=== PATIENT | male | born 1955 | race Caucasian/White ===

== ENCOUNTER 2019-04-16 10:54 | Observation (INO) | payer MEDICARE, OTHER ==
[~2019-04-16] VITALS: Ht 167.6 cm; Wt 69.9 kg
[2019-04-16] MEDS ORDERED: OMEPRAZOLE20 MG PO (11:36)
[2019-04-16] MEDS ORDERED: LISI20 PO (11:36)
[2019-04-16] MEDS ORDERED: AMLO5 PO (11:36)
[2019-04-16] MEDS ORDERED: MELO7.5 PO (11:37)
[2019-04-16] MEDS ORDERED: HYDR1TAB94 PO (11:37)
[2019-04-16 11:47] LABS: BASOPHILS ABSOLUTE AUTO 0.07 K/mm3 (0.00-0.23); BASOPHILS PERCENT AUTO 1 % (0-2); EOSINOPHILS ABSOLUTE AUTO 0.04 K/mm3 (0.00-0.68); EOSINOPHILS PERCENT AUTO 0 % (0-6); Hematocrit 45.5 % (37.0-53.0); Hemoglobin 15.1 g/dL (13.5-17.5); IMMATURE GRAN ABSOLUTE AUTO 0.02 K/mm3 (0.00-0.10); IMMATURE GRAN PERCENT AUTO 0 % (0-1); LYMPHOCYTES PERCENT AUTO 18 % (21-46); MONOCYTES ABSOLUTE AUTO 1.41 K/mm3 (0.16-1.47); MONOCYTES PERCENT AUTO 13 % (4-13); Mean Corpuscular HGB 30.1 pg (26.0-34.0); Mean Corpuscular HGB Conc 33.2 g/dL (31.5-36.5); Mean Corpuscular Volume 91 fL (80-100); Mean Platelet Volume 8.8 fL (9.1-12.4); NEUTROPHILS ABSOLUTE AUTO 7.05 K/mm3 (1.96-9.15); NEUTROPHILS PERCENT AUTO 67 % (41-73); Platelet Count 510 K/mm3 (150-400); RDW Coefficient Variation 13.5 % (11.7-14.2); RDW Standard Deviation 45.4 fL (35.1-46.3); Red Blood Cell Count 5.02 M/mm3 (4.30-5.90); White Blood Cell Count 10.49 K/mm3 (4.00-11.30)
[2019-04-16 12:05] LABS: Alanine Aminotransfer (ALT/SGP 25 U/L (12-78); Albumin, Blood 3.3 g/dL (3.4-5.0); Albumin/Globulin Ratio 0.7 (0.8-1.8); Alk Phos 125 U/L (50-136); Anion Gap 9 mmol/L (6-16); Aspartate Aminotrans (AST/SGOT 32 U/L (12-37); Bilirubin, Total 0.7 mg/dL (0.1-1.0); Blood Urea Nitrogen 9 mg/dL (8-24); Bun/Creatinine Ratio 9.6 (12.0-20.0); CO2, Blood 28 mmol/L (21-32); Calcium, Blood 8.7 mg/dL (8.5-10.1); Chloride, Blood 105 mmol/L (98-108); Creatinine, Blood 0.94 mg/dL (0.60-1.20); Globulin, Blood 4.9 g/dL (2.2-4.0); Glomerular Filtration Rate >60 (60-); Glucose, Blood 108 mg/dL (70-99); Potassium, Blood 3.5 mmol/L (3.5-5.5); Sodium, Blood 142 mmol/L (136-145); Total Protein, Blood 8.2 g/dL (6.4-8.2); Troponin I <0.015 ng/mL (0.000-0.040)
[2019-04-16] MEDS ORDERED: ALBU2.5V5 (15:36)
[2019-04-16 18:11] LABS: CHOL/HDL RATIO 2.5; Cholesterol 192 mg/dL (50-200); HDL Cholesterol 76 mg/dL (>39); LDL/HDL RATIO 1.3; Low Density Lipoprotein Chol 99 mg/dL (0-110); Triglycerides 87 mg/dL (30-160); Very Low Density Lipoprot Chol 17 mg/dL (6-32)
[2019-04-16 18:13] LABS: Troponin I <0.015 ng/mL (0.000-0.040)
--- NOTE | 2019-04-16 18:54 | NUR ---
SHIFT NOTE PT ADMITTED FROM ER FOR AFIB RVR THAT WAS REPORTED TO BE BETWEEN 160s-180s, PT HAD 10MG BOLUS OF CARDIZEM AND INFUSION OF 5MG/HR UPON ARRIVAL FROM. PT WAS TITRATED 10MG CARDIZEM HR JUMPED TO 180s WHEN PT WAS UP TO BSC. PT ON ROOM AIR. ASYMPTOMATIC, DENIES FLUTTERING IN CHEST, NO CP NO SOB. PT A/O X4, ANSWERING QUESTIONS APPROPRIATELY. SKIN PWD AND INTACT. ROOM AIR
[2019-04-17 01:21] LABS: BASOPHILS ABSOLUTE AUTO 0.08 K/mm3 (0.00-0.23); BASOPHILS PERCENT AUTO 1 % (0-2); EOSINOPHILS ABSOLUTE AUTO 0.13 K/mm3 (0.00-0.68); EOSINOPHILS PERCENT AUTO 2 % (0-6); Hematocrit 40.9 % (37.0-53.0); Hemoglobin 13.6 g/dL (13.5-17.5); IMMATURE GRAN ABSOLUTE AUTO 0.02 K/mm3 (0.00-0.10); IMMATURE GRAN PERCENT AUTO 0 % (0-1); LYMPHOCYTES PERCENT AUTO 26 % (21-46); MONOCYTES ABSOLUTE AUTO 1.32 K/mm3 (0.16-1.47); MONOCYTES PERCENT AUTO 16 % (4-13); Mean Corpuscular HGB Conc 33.3 g/dL (31.5-36.5); Mean Corpuscular Volume 90 fL (80-100); Mean Platelet Volume 8.8 fL (9.1-12.4); NEUTROPHILS ABSOLUTE AUTO 4.76 K/mm3 (1.96-9.15); NEUTROPHILS PERCENT AUTO 56 % (41-73); Platelet Count 433 K/mm3 (150-400); RDW Coefficient Variation 13.3 % (11.7-14.2); RDW Standard Deviation 44.2 fL (35.1-46.3); Red Blood Cell Count 4.54 M/mm3 (4.30-5.90); White Blood Cell Count 8.51 K/mm3 (4.00-11.30)
[2019-04-17 01:35] LABS: Anion Gap 7 mmol/L (6-16); Blood Urea Nitrogen 11 mg/dL (8-24); CO2, Blood 28 mmol/L (21-32); Calcium, Blood 8.3 mg/dL (8.5-10.1); Chloride, Blood 106 mmol/L (98-108); Creatinine, Blood 0.79 mg/dL (0.60-1.20); Glomerular Filtration Rate >60 (60-); Glucose, Blood 96 mg/dL (70-99); Potassium, Blood 3.3 mmol/L (3.5-5.5); Sodium, Blood 141 mmol/L (136-145)
--- NOTE | 2019-04-17 02:14 | NUR ---
ASSUMED CARE AT 1900. SLEEPING SOUNDLY AND AROUSED FOR ASSESSMENT. CARDIZEM AT 10MG /HR. AND AF HR 90-100 WHILE ASLEEP. AND NOT OOB OF THIS X .REDUCED CARDIZEM TO 5 MG / HR AT 2330 HR NOTED 60'S-70'S. NOW 80-100. OCCASIONAL COUGH MOIST AND REPORTS SCANT CLEAR SECRETIONS. REPORTS BED UNCOMFORTABLE WITH SPINAL CONDITION, BUT PAIN MED FOR THIS CHRONIC PAIN, REFUSED,
--- NOTE | 2019-04-17 06:27 | NUR ---
SUMMARY. NO CHANGE FROM ABOVE. WHEN BED REST ALL NOC HR 80-90 ON 5 MG /HR CARDIZEM. NEVER REPORTS SOB/ CP / PALPITATIONS. REPORTS LESS COUGHING AND IMPROVEMENT. PAIN MED REQUIRED DUE TO LYING IN BED ALL NOC,.
--- NOTE | 2019-04-17 17:24 | NUR ---
SHIFT SUMMARY PT A&Ox4. CALM AND COOPERATIVE WITH CARE. PT RESTING IN BED, APPEARS TO BE INTERMITTENTLY SLEEPING. PT REPORT NECK AND LOWER BACK PAIN, MEDICATED x1 WITH POSITIVE RESULTS. UP IN ROOM WITH SBA. PT DENIES SOB. SPO2 >94%/ PT REPROTS DRY COUGH. PT DENIES CP, LIGHTHEADED/DIZZINESS AND NASUEA. TELE THIS AM AFIB HR 80-100, PT RECEIVING IV CARDIZEM AND STARTED PO CARDIZEM AT 1120. 1228 STOPPED CARDIZEM GTT. TELE AFIB 60-80'S THIS AFTERNOON. THIS AM HR 110-140 WITH ACTIVITY, PT UP TO BS AND HAS BED BATH. PT RECEIVED IV MAGNESIUM AND PO POTASSIUM SUPPLEMENTS. VSS. NO OTHER ACUTE CHANGES NOTED DURING SHIFT. WILL CONTINUE TO MONITOR UNTIL REPORT GIVEN TO ONCOMING RN.
--- NOTE | 2019-04-17 21:34 | NUR ---
ASSUMED CARE OF PATIENT AT APPROXIMATELY 1910 FROM YULIANA Delgado RN. PATIENT ALERT AND ORIENTED X4; ONE ASSIST OUT OF BED. PATIENT REPORTS CHRONIC BACK PAIN; REFUSES ANY INTERVENTION EXCEPT PAIN MEDICATIONS; MEDICATED PER EMAR. PATIENT DENIES NUMBNESS, TINGLING, DIZZINESS AND NAUSEA. PATIENT STARTED ELIQUIS TODAY; NO QUESTIONS FROM PATIENT. PATIENT HAS COUGH; TAKEN OFF OF LISINIPRIL BEFORE ADMISSION TO HOSPITAL. AFIB WITH A RATE IN THE 90'S; HEART RATE INCREASES TO 120'S WITH AMBULATION; OXYGEN SATURATION ABOVE 90% ON ROOM AIR. 2X PIV S/L. PATIENT CURRENTLY RESTING IN BED; CALL LIGHT IN REACH; BED IN LOWEST POSISTION; WILL CONTINUE TO MONITOR AND ASSESS UNTIL END OF SHIFT.
--- NOTE | 2019-04-18 06:06 | NUR ---
PATIENT SLEPT ABOUT NINE HOURS LAST NIGHT. VSS. NO ACUTE CHANGE TO REPORT. WILL CONTINUE TO MONITOR AND ASSESS UNTIL END OF SHIFT.
[2019-04-18] MEDS ORDERED: ASPI81CH PO (11:21)
[2019-04-18] MEDS ORDERED: ELIQUIS5 MG PO (11:22)
[2019-04-18] MEDS ORDERED: DILTIAZEM 24HR240 MG PO (11:23)
--- NOTE | 2019-04-18 15:16 | NUR ---
DISCHARGE SUMMARY PT A&Ox4. CALM AND COOPERATIVE WITH CARE. PT SBA IN ROOM, UP TO BATHROOM. PT REPORTS NECK/BACK PAIN, MEDICATED x1 WITH NORCO WITH POSITIVE RESULTS. PT AWAKE RESTING IN BED T/O SHIFT. TELE AFIB 80-100 FOR MAJORITY OF SHIFT, UP TO 150 WITH ACTIVITY, DR OGDEN NOTIFIED, NO NEW ORDERS. PT DENIES SOB AND NAUSEA. PT RECEIVED DOSE OF PPO CARDIZEM. VSS. NO OTHER ACUTE CHANGES NOTED DURING SHIFT. PT EDUCATED ON DISCHARGE INSTRUCTIONS, MEDICATIONS AND FOLLOW UP APPOINTMENTS. SHCEDULES CARDOLOGY APPOINTMENT, PT DOES NOTE HAVE PCP, PLANS TO APPLY WITH [facility], AND WILL FOLLOW UP WITH THEIR URGENT CARE UNTIL ESTABLISHED WITH PCP. PRESCIPTIONS FAXED TO [facility] ON [address], PER PT REQUEST. PT LEFT ROOM VIA WHEELCHAIR AT 1341. PT STABLE UPON DISCHARGE.
== END 2019-04-18 13:41 | disposition home or self-care (01) ==
LOC: ER 10:54 → PCU 10:55 → ER 14:53 → PCU 15:33
PROVIDERS: Physician Assistant; ADMIT Internal Medicine
DX: I48.91 Unspecified atrial fibrillation (principal); R05 Cough; I10 Essential (primary) hypertension; E11.9 Type 2 diabetes mellitus without complications; J44.9 Chronic obstructive pulmonary disease, unspecified; M45.9 Ankylosing spondylitis of unspecified sites in spine; L40.9 Psoriasis, unspecified; D47.3 Essential (hemorrhagic) thrombocythemia; E83.42 Hypomagnesemia; F17.210 Nicotine dependence, cigarettes, uncomplicated; E87.6 Hypokalemia; Z79.01 Long term (current) use of anticoagulants; Z79.82 Long term (current) use of aspirin; Z79.899 Other long term (current) drug therapy
CPT/HCPCS: 36415; 71046; 80048; 80053; 80061; 83735; 83880; 84443; 84484; 85025; 90686; 93005; 93010; 93306; 96365; 96372-59; 96376; 99284-25; A9270-GY; J1650; J3475

== ENCOUNTER 2020-10-31 09:34 | Emergency (ER) | payer MEDICARE, OTHER ==
[~2020-10-31] VITALS: Ht 167.6 cm; Wt 73.5 kg
[~2020-10-31 09:34] MED LIST: ALBU2.5V5; AMLO5 PO; ASPI81CH PO; DILTIAZEM 24HR240 MG PO; ELIQUIS5 MG PO; HYDR1TAB94 PO; LISI20 PO; MELO7.5 PO; OMEPRAZOLE20 MG PO
[2020-10-31] MEDS ORDERED: HYDR1TAB94 PO (11:24)
== END 2020-10-31 11:36 | disposition home or self-care (01) ==
LOC: ER 09:34
DX: M79.671 Pain in right foot (principal); I10 Essential (primary) hypertension; E11.9 Type 2 diabetes mellitus without complications; F17.210 Nicotine dependence, cigarettes, uncomplicated; Z79.01 Long term (current) use of anticoagulants; Z79.899 Other long term (current) drug therapy
CPT/HCPCS: 93971; 99284-25

== ENCOUNTER 2021-09-15 11:44 | Inpatient (IN) | payer MEDICARE ==
[~2021-09-15] VITALS: Ht 167.6 cm; Wt 70.1 kg
[2021-09-15 12:22] LABS: Hematocrit 22.7 % (37.0-53.0); Hemoglobin 7.6 g/dL (13.5-17.5); Mean Corpuscular HGB 31.8 pg (26.0-34.0); Mean Corpuscular HGB Conc 33.5 g/dL (31.5-36.5); Mean Corpuscular Volume 95 fL (80-100); Mean Platelet Volume 8.7 fL (9.1-12.4); NRBC ABSOLUTE 0.03 K/mm3 (0.00-0.02); NRBC Auto 0.3 /100 WBC (0.0-0.2); Platelet Count 477 K/mm3 (150-400); RDW Coefficient Variation 17.7 % (11.7-14.2); RDW Standard Deviation 60.3 fL (35.1-46.3); Red Blood Cell Count 2.39 M/mm3 (4.30-5.90); White Blood Cell Count 11.36 K/mm3 (4.00-11.30)
[2021-09-15 12:51] LABS: Albumin, Blood 1.9 g/dL (3.4-5.0); Albumin/Globulin Ratio 0.4 (0.8-1.8); Bun/Creatinine Ratio 7.5 (12.0-20.0); Calcium, Blood 5.4 mg/dL (8.5-10.1); Creatinine, Blood 1.87 mg/dL (0.60-1.20); Globulin, Blood 4.9 g/dL (2.2-4.0); Potassium, Blood 2.7 mmol/L (3.5-5.5); Total Protein, Blood 6.8 g/dL (6.4-8.2)
[2021-09-15 13:43] LABS: BASOPHILS ABSOLUTE MAN 0.11 K/mm3 (0.00-0.23); BASOPHILS PERCENT MAN 1 % (0-2); EOSINOPHILS ABSOLUTE MAN 0.11 K/mm3 (0.00-0.68); EOSINOPHILS PERCENT MAN 1 % (0-6); LYMPHOCYTES ABSOLUTE MAN 2.04 K/mm3 (0.84-5.20); LYMPHOCYTES PERCENT MAN 18 % (21-46); MONOCYTES PERCENT MAN 0 % (4-13); NEUTROPHILS ABSOLUTE MAN 9.08 K/mm3 (1.96-9.15); SEG NEUTROPHILS PERCENT MAN 80 % (41-73); TOTAL CELLS COUNTED 100
[2021-09-15 17:52] LABS: Hematocrit 19.2 % (37.0-53.0); Hemoglobin 6.5 g/dL (13.5-17.5); Mean Corpuscular HGB 31.7 pg (26.0-34.0); Mean Corpuscular HGB Conc 33.9 g/dL (31.5-36.5); Mean Corpuscular Volume 94 fL (80-100); Mean Platelet Volume 8.6 fL (9.1-12.4); Platelet Count 368 K/mm3 (150-400); RDW Coefficient Variation 17.4 % (11.7-14.2); Red Blood Cell Count 2.05 M/mm3 (4.30-5.90)
[2021-09-15 19:25] LABS: BASOPHILS ABSOLUTE AUTO 0.04 K/mm3 (0.00-0.23); BASOPHILS PERCENT AUTO 1 % (0-2); EOSINOPHILS ABSOLUTE AUTO 0.01 K/mm3 (0.00-0.68); EOSINOPHILS PERCENT AUTO 0 % (0-6); Mean Corpuscular HGB 31.3 pg (26.0-34.0); Mean Corpuscular HGB Conc 32.4 g/dL (31.5-36.5); Mean Corpuscular Volume 97 fL (80-100); Mean Platelet Volume 8.8 fL (9.1-12.4); Platelet Count 314 K/mm3 (150-400); RDW Coefficient Variation 17.5 % (11.7-14.2); RDW Standard Deviation 60.6 fL (35.1-46.3); Red Blood Cell Count 1.82 M/mm3 (4.30-5.90); White Blood Cell Count 6.93 K/mm3 (4.00-11.30)
[2021-09-15] MEDS ORDERED: METOPROLOL SUCC25 MG PO (19:26)
[2021-09-15] MEDS ORDERED: LOSA25 (19:26)
[2021-09-15] MEDS ORDERED: METTREX2.5 PO (19:26)
[2021-09-15 19:30] LABS: IMMATURE GRAN ABSOLUTE AUTO 0.07 K/mm3 (0.00-0.10); IMMATURE GRAN PERCENT AUTO 1 % (0-1); LYMPHOCYTES ABSOLUTE AUTO 1.37 K/mm3 (0.84-5.20); LYMPHOCYTES PERCENT AUTO 20 % (21-46); MONOCYTES ABSOLUTE AUTO 0.17 K/mm3 (0.16-1.47); MONOCYTES PERCENT AUTO 3 % (4-13); NEUTROPHILS ABSOLUTE AUTO 5.27 K/mm3 (1.96-9.15); NEUTROPHILS PERCENT AUTO 76 % (41-73)
[2021-09-15 19:31] LABS: Influenza A, PCR NEGATIVE (NEGATIVE); Influenza B, PCR NEGATIVE (NEGATIVE); Resp Syncytial Virus, PCR NEGATIVE (NEGATIVE); SARS-Cov-2 (COVID-19) PCR, MMC NEGATIVE (NEGATIVE)
[2021-09-15 19:31] LABS: Hematocrit 17.6 % (37.0-53.0); Hemoglobin 5.7 g/dL (13.5-17.5)
[2021-09-15 20:06] LABS: BASOPHILS PERCENT MAN 0 % (0-2); EOSINOPHILS PERCENT MAN 0 % (0-6); LYMPHOCYTES ABSOLUTE MAN 1.31 K/mm3 (0.84-5.20); LYMPHOCYTES PERCENT MAN 19 % (21-46); MONOCYTES ABSOLUTE MAN 0.13 K/mm3 (0.16-1.47); MONOCYTES PERCENT MAN 2 % (4-13); NEUTROPHILS ABSOLUTE MAN 5.47 K/mm3 (1.96-9.15); SEG NEUTROPHILS PERCENT MAN 79 % (41-73); TOTAL CELLS COUNTED 100
[2021-09-15 20:40] LABS: Magnesium, Blood 1.2 mg/dL (1.6-2.4)
[2021-09-15 20:45] LABS: Bun/Creatinine Ratio 7.9 (12.0-20.0); Calcium, Blood 5.5 mg/dL (8.5-10.1); Creatinine, Blood 1.89 mg/dL (0.60-1.20); Potassium, Blood 2.6 mmol/L (3.5-5.5)
[2021-09-15 20:47] LABS: Hematocrit 19.2 % (37.0-53.0); Hemoglobin 6.7 g/dL (13.5-17.5)
[2021-09-16 00:04] LABS: C DIFFICILE DNA NEGATIVE (Negative)
[2021-09-16 00:05] LABS: Adenovirus F 40/41 Not Detected (NOT DETECT); Astrovirus Not Detected (NOT DETECT); Campylobacter Sp Not Detected (NOT DETECT); Cryptosporidium Not Detected (NOT DETECT); Cyclospora Cayetanensis Not Detected (NOT DETECT); E. Coli O157 Not Detected (NOT DETECT); Entamoeba Histolytica Not Detected (NOT DETECT); Enteroaggregative E. coli-EAEC Not Detected (NOT DETECT); Enteropathogenic E. coli-EPEC Not Detected (NOT DETECT); Enterotoxigenic E. coli-ETEC Not Detected (NOT DETECT); Giardia Lamblia Not Detected (NOT DETECT); Norovirus GI/GII Not Detected (NOT DETECT); Plesiomonas Shigelloides Not Detected (NOT DETECT); Rotavirus A Not Detected (NOT DETECT); Salmonella Sp Not Detected (NOT DETECT); Sapovirus Not Detected (NOT DETECT); Shiga Toxin-prod E. coli-STEC Not Detected (NOT DETECT); Shigella/Enteroin E. coli-EIEC Not Detected (NOT DETECT); Vibrio Cholerae Not Detected (NOT DETECT); Vibrio Sp Not Detected (NOT DETECT); Yersinia Enterocolitica Not Detected (NOT DETECT)
[2021-09-16 03:41] LABS: BASOPHILS ABSOLUTE AUTO 0.03 K/mm3 (0.00-0.23); BASOPHILS PERCENT AUTO 0 % (0-2); EOSINOPHILS ABSOLUTE AUTO 0.03 K/mm3 (0.00-0.68); EOSINOPHILS PERCENT AUTO 0 % (0-6); Hematocrit 24.8 % (37.0-53.0); Hemoglobin 8.4 g/dL (13.5-17.5); IMMATURE GRAN ABSOLUTE AUTO 0.04 K/mm3 (0.00-0.10); IMMATURE GRAN PERCENT AUTO 1 % (0-1); LYMPHOCYTES ABSOLUTE AUTO 1.51 K/mm3 (0.84-5.20); LYMPHOCYTES PERCENT AUTO 22 % (21-46); MONOCYTES ABSOLUTE AUTO 0.26 K/mm3 (0.16-1.47); MONOCYTES PERCENT AUTO 4 % (4-13); Mean Corpuscular HGB 31.6 pg (26.0-34.0); Mean Corpuscular HGB Conc 33.9 g/dL (31.5-36.5); Mean Corpuscular Volume 93 fL (80-100); Mean Platelet Volume 8.6 fL (9.1-12.4); NEUTROPHILS PERCENT AUTO 73 % (41-73); NRBC ABSOLUTE 0.02 K/mm3 (0.00-0.02); NRBC Auto 0.3 /100 WBC (0.0-0.2); Platelet Count 311 K/mm3 (150-400); RDW Coefficient Variation 16.5 % (11.7-14.2); RDW Standard Deviation 54.6 fL (35.1-46.3); Red Blood Cell Count 2.66 M/mm3 (4.30-5.90); White Blood Cell Count 6.97 K/mm3 (4.00-11.30)
[2021-09-16 03:57] LABS: Magnesium, Blood 1.3 mg/dL (1.6-2.4)
[2021-09-16 04:00] LABS: Bun/Creatinine Ratio 7.9 (12.0-20.0); Calcium, Blood 5.6 mg/dL (8.5-10.1); Creatinine, Blood 1.91 mg/dL (0.60-1.20); Potassium, Blood 3.1 mmol/L (3.5-5.5)
--- NOTE | 2021-09-16 06:34 | NUR ---
SHIFT SUMMARY ASSUMED CARE OF PT AT 2030. PT IS A/OX4. HEART SOUNDS REGULAR. LUNG SOUNDS CLEAR. USES THE URINAL AND BSC INDEPENDENTLY. STOOL IS VERY RUNNY BUT NO VISIBLE BLOOD. PT C/O NEASEA ONCE, MEDICATED PER EMAR. PT SKINS IS VERY DRY AND FLAKY. PT BODY IS VERY STIFF BUT HE CAN MOVE INDEPENDENTLY. PT REFUSED SCUDS DUE TO NOT BEING ABLE TO MOVE HIMSELF IN BED. PT DID NOT SLEEP WELL DURING THE NIGHT.
[2021-09-16 07:39] LABS: BASOPHILS ABSOLUTE AUTO 0.06 K/mm3 (0.00-0.23); BASOPHILS PERCENT AUTO 1 % (0-2); EOSINOPHILS ABSOLUTE AUTO 0.03 K/mm3 (0.00-0.68); EOSINOPHILS PERCENT AUTO 1 % (0-6); Hematocrit 25.1 % (37.0-53.0); Hemoglobin 8.4 g/dL (13.5-17.5); IMMATURE GRAN ABSOLUTE AUTO 0.07 K/mm3 (0.00-0.10); IMMATURE GRAN PERCENT AUTO 1 % (0-1); LYMPHOCYTES ABSOLUTE AUTO 1.38 K/mm3 (0.84-5.20); LYMPHOCYTES PERCENT AUTO 23 % (21-46); MONOCYTES ABSOLUTE AUTO 0.28 K/mm3 (0.16-1.47); MONOCYTES PERCENT AUTO 5 % (4-13); Mean Corpuscular HGB Conc 33.5 g/dL (31.5-36.5); Mean Corpuscular Volume 93 fL (80-100); Mean Platelet Volume 8.8 fL (9.1-12.4); NEUTROPHILS ABSOLUTE AUTO 4.23 K/mm3 (1.96-9.15); NEUTROPHILS PERCENT AUTO 70 % (41-73); NRBC ABSOLUTE 0.02 K/mm3 (0.00-0.02); NRBC Auto 0.3 /100 WBC (0.0-0.2); Platelet Count 304 K/mm3 (150-400); RDW Coefficient Variation 16.9 % (11.7-14.2); Red Blood Cell Count 2.71 M/mm3 (4.30-5.90); White Blood Cell Count 6.05 K/mm3 (4.00-11.30)
[2021-09-16 07:57] LABS: Bun/Creatinine Ratio 8.2 (12.0-20.0); Calcium, Blood 6.1 mg/dL (8.5-10.1); Creatinine, Blood 1.83 mg/dL (0.60-1.20); Magnesium, Blood 1.2 mg/dL (1.6-2.4); Potassium, Blood 2.6 mmol/L (3.5-5.5)
[2021-09-16] MEDS ORDERED: FOLI1 PO (09:21)
[2021-09-16] MEDS ORDERED: POTA10T PO (09:22)
[2021-09-16] MEDS ORDERED: LOSA50 PO (09:23)
[2021-09-16 11:35] LABS: Bun/Creatinine Ratio 8.1 (12.0-20.0); Calcium, Blood 6.1 mg/dL (8.5-10.1); Creatinine, Blood 1.85 mg/dL (0.60-1.20); Potassium, Blood 2.7 mmol/L (3.5-5.5)
[2021-09-16 15:40] LABS: Calcium, Blood 5.9 mg/dL (8.5-10.1); Creatinine, Blood 1.85 mg/dL (0.60-1.20); Potassium, Blood 2.8 mmol/L (3.5-5.5)
--- NOTE | 2021-09-16 17:29 | NUR ---
SHIFT SUMMARY Pt is a/o x 4 with no complaints. He continues with loose stool and has been a SBA to the BS throughout the day. His IV fluids continue to run as ordered and the doctor advanced him to clear liquids as we are still waiting on a bed for him to transfer to. His brought his home meds in and thus they were reconciled in [facility] and then she brought them home with her when she left earlier this morning. Simultaneously this afternoon telecommunications administrator reported that he had a run of SVT and the lab reported a calcium level of 5.9. He also converted to A-fib. An EKG was done. Dr Andrews was notifed and she came to see him and put orders in as reflected on the EMAR. A new IV was placed to accomodate his IV meds/fluids. He called and updated his and she returned and was updated. He is resting in bed now watching TV with his call light in reach.
[2021-09-17 04:54] LABS: BASOPHILS ABSOLUTE AUTO 0.06 K/mm3 (0.00-0.23); BASOPHILS PERCENT AUTO 1 % (0-2); EOSINOPHILS ABSOLUTE AUTO 0.11 K/mm3 (0.00-0.68); EOSINOPHILS PERCENT AUTO 2 % (0-6); Hematocrit 24.8 % (37.0-53.0); Hemoglobin 8.2 g/dL (13.5-17.5); IMMATURE GRAN ABSOLUTE AUTO 0.06 K/mm3 (0.00-0.10); IMMATURE GRAN PERCENT AUTO 1 % (0-1); LYMPHOCYTES ABSOLUTE AUTO 1.56 K/mm3 (0.84-5.20); LYMPHOCYTES PERCENT AUTO 25 % (21-46); MONOCYTES ABSOLUTE AUTO 0.31 K/mm3 (0.16-1.47); MONOCYTES PERCENT AUTO 5 % (4-13); Mean Corpuscular HGB 31.3 pg (26.0-34.0); Mean Corpuscular HGB Conc 33.1 g/dL (31.5-36.5); Mean Corpuscular Volume 95 fL (80-100); Mean Platelet Volume 8.8 fL (9.1-12.4); NEUTROPHILS ABSOLUTE AUTO 4.06 K/mm3 (1.96-9.15); NEUTROPHILS PERCENT AUTO 66 % (41-73); NRBC ABSOLUTE 0.03 K/mm3 (0.00-0.02); NRBC Auto 0.5 /100 WBC (0.0-0.2); Platelet Count 263 K/mm3 (150-400); RDW Coefficient Variation 17.6 % (11.7-14.2); RDW Standard Deviation 59.3 fL (35.1-46.3); Red Blood Cell Count 2.62 M/mm3 (4.30-5.90); White Blood Cell Count 6.16 K/mm3 (4.00-11.30)
[2021-09-17 05:16] LABS: Albumin, Blood 1.6 g/dL (3.4-5.0); Anion Gap 12 mmol/L (6-16); Blood Urea Nitrogen 13 mg/dL (8-24); Bun/Creatinine Ratio 7.4 (12.0-20.0); CO2, Blood 17 mmol/L (21-32); Calcium, Blood 6.3 mg/dL (8.5-10.1); Chloride, Blood 119 mmol/L (98-108); Creatinine, Blood 1.75 mg/dL (0.60-1.20); Glomerular Filtration Rate 39 (60-); Glucose, Blood 95 mg/dL (70-99); Magnesium, Blood 1.8 mg/dL (1.6-2.4); Phosphorus, Blood 3.8 mg/dL (2.5-4.9); Sodium, Blood 148 mmol/L (136-145)
--- NOTE | 2021-09-17 06:55 | NUR ---
SHIFT SUMMARY ASSUMED CARE OF PT AT 1900. PT IS A/OX4. HEART SOUNDS IRREGULAR. PT HAS BEEN IN AFIB/ SINUS TACH T/O THE NIGHT. WITH ANY KIND OF MOVEMENT PT HR WILL INCREASE TO THE 130-160 BPM. THIS AM AT AROUND 0500, PT HR INCREASED TO THE 160'S AND SUSTAINED AND PT BECAME VERY SOB. HOSPITALIST NOTIFIED AND REVEIWED CHART. PT MEDICATED AND RATE IS NOW IN THE 100-120 BPM BUT PT IS STILL SOB. PT WAS PLACED ON 4L NC FOR SUPPORT. PT HAD NO MAYRA BLOOD IN STOOL. PT USED BEDPAN ONCE. NOT OTHER EVENTS, PT WAS ABLE TO GET SOME SLEEP TONIGHT.
--- NOTE | 2021-09-17 16:26 | NUR ---
SHIFT SUMMARY Pt remains a/o x 4 with ongoing chronic pain which he was medicated for per emar. He remains on bedrest and even with the slightest bit of movement his heart rate does increase but has improved since yesterday. He continues to be in a-fib with a current heart rate of 127. His IV fluids/meds continue to infuse as ordered with no issue. Dr Vanegas advanced his diet to full liquids and since then his BMs have become less liquid and more formed. He is using the bed tillman. As of now he is on a wait list for a bed for GI follow up. His has been in and out today and she was updated. He has his call light in reach and is able to make his needs known when needed.
[2021-09-18 05:39] LABS: BASOPHILS ABSOLUTE AUTO 0.05 K/mm3 (0.00-0.23); BASOPHILS PERCENT AUTO 0 % (0-2); EOSINOPHILS ABSOLUTE AUTO 0.18 K/mm3 (0.00-0.68); EOSINOPHILS PERCENT AUTO 2 % (0-6); Hematocrit 26.1 % (37.0-53.0); Hemoglobin 8.6 g/dL (13.5-17.5); IMMATURE GRAN ABSOLUTE AUTO 0.08 K/mm3 (0.00-0.10); IMMATURE GRAN PERCENT AUTO 1 % (0-1); LYMPHOCYTES ABSOLUTE AUTO 1.43 K/mm3 (0.84-5.20); LYMPHOCYTES PERCENT AUTO 12 % (21-46); MONOCYTES ABSOLUTE AUTO 0.61 K/mm3 (0.16-1.47); MONOCYTES PERCENT AUTO 5 % (4-13); Mean Corpuscular HGB 31.9 pg (26.0-34.0); Mean Corpuscular Volume 97 fL (80-100); Mean Platelet Volume 8.8 fL (9.1-12.4); NEUTROPHILS ABSOLUTE AUTO 9.98 K/mm3 (1.96-9.15); NEUTROPHILS PERCENT AUTO 81 % (41-73); NRBC ABSOLUTE 0.03 K/mm3 (0.00-0.02); NRBC Auto 0.2 /100 WBC (0.0-0.2); Platelet Count 259 K/mm3 (150-400); RDW Coefficient Variation 18.2 % (11.7-14.2); RDW Standard Deviation 61.7 fL (35.1-46.3); White Blood Cell Count 12.33 K/mm3 (4.00-11.30)
--- NOTE | 2021-09-18 06:32 | NUR ---
SHIFT SUMMARY ALERT AND ORIENTED X4. AFEBRILE. ON 2L NC SATS OVER 98%. HR AFIB. 120-140'S AT REST. TACHY UP TO 190'S WITH ACTIVITY, EVEN WITH JUST A SMALL TURN. BP STABLE. CHRONIC BACK PAIN, MEDICATED PER EMAR. HR HAD SOME RELIEF WITH 5MG DOSES OF IV LOPRESSOR. USES BEDPAN. ON BEDREST DUE TO TACHYCARDIA. LEDA PG DOES NOT DRAW. D5W 1/2NS KCL INFUSING. PROTONIX GTT INFUSING. IN BED WATCHING TV WITH CALL ALARM AT SIDE. WILL CONTINUE TO MONITOR UNTIL REPORT GIVEN TO DAYSRICO HENDRICKS
[2021-09-18 07:17] LABS: Albumin, Blood 1.7 g/dL (3.4-5.0); Anion Gap 5 mmol/L (6-16); Blood Urea Nitrogen 12 mg/dL (8-24); Bun/Creatinine Ratio 7.1 (12.0-20.0); CO2, Blood 20 mmol/L (21-32); Calcium, Blood 6.7 mg/dL (8.5-10.1); Chloride, Blood 122 mmol/L (98-108); Creatinine, Blood 1.69 mg/dL (0.60-1.20); Glomerular Filtration Rate 41 (60-); Glucose, Blood 118 mg/dL (70-99); Magnesium, Blood 1.4 mg/dL (1.6-2.4); Phosphorus, Blood 2.2 mg/dL (2.5-4.9); Potassium, Blood 3.9 mmol/L (3.5-5.5); Sodium, Blood 147 mmol/L (136-145)
--- NOTE | 2021-09-18 14:03 | NUR ---
REPORT GIVEN TO CLARA HENDRICKS TO ASSUME CARE OF PT AT THIS TIME.
--- NOTE | 2021-09-18 18:31 | NUR ---
ASSUPTION OF CARE ASSUMED CARE OF PT AT 1403. REPORT RECIEVED FROM SABINA HENDRICKS AT THIS TIME. PT A/O X4, ANXIOUS DUE TO THE "AMOUNT OF DIARRHEA I AM HAVING." PER REPORT, PT HAS HAD FREQUENT SMALL LOOSE STOOLS, IMMODIUM ORDERED. NO REPORT OF CHEST PAIN/PRESSURE AT THIS TIME. SOB WITH EXERTION NOTED, AUDIBLE WHEEZES.
--- NOTE | 2021-09-18 19:23 | NUR ---
SHIFT SUMMARY PT A/O X4, IRRITABLE AT TIMES DUE TO FREQUENT SMALL BM'S. BP'S SOFT WITH SBP 90-100'S. PT PULSE TACHY SINCE ASSUMPTION OF CARE, HR INCREASES TO 150'S WITH MINIMAL EXERTION, METOPROLOL FREQUENCY INCREASED TODAY. PT REPORTS SOB WITH ANY EXERTION AND REPORTS THAT "TAKES AWHILE TO RECOVER." NO REPORT OF CHEST PAIN/PRESSURE SINCE ASSUMPTINO OF CARE. PT HAD MULTIPLE SMALL LOOSE BM'S SINCE ASSUMPTION OF CARE, TREATED PER EMAR. PT ABLE TO LIFT HIPS FOR BEDPAN PLACEMENT, REPORTS DYSPNEA.
[2021-09-19 06:17] LABS: BASOPHILS ABSOLUTE AUTO 0.04 K/mm3 (0.00-0.23); BASOPHILS PERCENT AUTO 0 % (0-2); EOSINOPHILS ABSOLUTE AUTO 0.06 K/mm3 (0.00-0.68); EOSINOPHILS PERCENT AUTO 0 % (0-6); Hematocrit 29.8 % (37.0-53.0); Hemoglobin 9.3 g/dL (13.5-17.5); IMMATURE GRAN ABSOLUTE AUTO 0.17 K/mm3 (0.00-0.10); IMMATURE GRAN PERCENT AUTO 1 % (0-1); LYMPHOCYTES ABSOLUTE AUTO 1.72 K/mm3 (0.84-5.20); LYMPHOCYTES PERCENT AUTO 11 % (21-46); MONOCYTES ABSOLUTE AUTO 0.94 K/mm3 (0.16-1.47); MONOCYTES PERCENT AUTO 6 % (4-13); Mean Corpuscular HGB 31.7 pg (26.0-34.0); Mean Corpuscular HGB Conc 31.2 g/dL (31.5-36.5); Mean Platelet Volume 9.5 fL (9.1-12.4); NEUTROPHILS ABSOLUTE AUTO 13.15 K/mm3 (1.96-9.15); NEUTROPHILS PERCENT AUTO 82 % (41-73); NRBC ABSOLUTE 0.07 K/mm3 (0.00-0.02); NRBC Auto 0.4 /100 WBC (0.0-0.2); Platelet Count 269 K/mm3 (150-400); RDW Standard Deviation 65.3 fL (35.1-46.3); Red Blood Cell Count 2.93 M/mm3 (4.30-5.90); White Blood Cell Count 16.08 K/mm3 (4.00-11.30)
[2021-09-19 06:30] LABS: Mean Corpuscular Volume 102 fL (80-100)
--- NOTE | 2021-09-19 06:31 | NUR ---
SHIFT SUMMARY [id number] PT SLEPT VERY LITTLE OVERNIGHT, ORIENTED X4, VSS PER PT TREND. AFIB W/CONVERSION TO SR ON TELEMETRY. CONSTANT MUCOUS DIARRHEA AND DISCOMFORT. NAUSEA X1. PRNS GIVEN (SEE EMAR FOR DETAILS). BUTTOCKS RED, BARRIER CREAM APPLIED. SOA W/MINIMAL EXERTION, ON 2L NC. WILL CONTINUE TO MONITOR AND PASS ON TO DAY RN.
[2021-09-19 06:38] LABS: Magnesium, Blood 1.4 mg/dL (1.6-2.4)
[2021-09-19 06:41] LABS: Albumin, Blood 1.9 g/dL (3.4-5.0); Anion Gap 5 mmol/L (6-16); Blood Urea Nitrogen 11 mg/dL (8-24); Bun/Creatinine Ratio 6.8 (12.0-20.0); CO2, Blood 17 mmol/L (21-32); Calcium, Blood 7.3 mg/dL (8.5-10.1); Chloride, Blood 124 mmol/L (98-108); Creatinine, Blood 1.61 mg/dL (0.60-1.20); Glomerular Filtration Rate 43 (60-); Glucose, Blood 121 mg/dL (70-99); Phosphorus, Blood 2.1 mg/dL (2.5-4.9); Sodium, Blood 146 mmol/L (136-145)
[2021-09-19 06:42] LABS: Potassium, Blood 5.9 mmol/L (3.5-5.5)
[2021-09-19 10:33] LABS: Bun/Creatinine Ratio 7.3 (12.0-20.0); Calcium, Blood 7.2 mg/dL (8.5-10.1); Creatinine, Blood 1.64 mg/dL (0.60-1.20)
[2021-09-19 15:42] LABS: Anion Gap 4 mmol/L (6-16); Blood Urea Nitrogen 12 mg/dL (8-24); Bun/Creatinine Ratio 7.4 (12.0-20.0); CO2, Blood 18 mmol/L (21-32); Calcium, Blood 7.4 mg/dL (8.5-10.1); Chloride, Blood 124 mmol/L (98-108); Creatinine, Blood 1.63 mg/dL (0.60-1.20); Glomerular Filtration Rate 43 (60-); Glucose, Blood 151 mg/dL (70-99); Phosphorus, Blood 2.8 mg/dL (2.5-4.9); Potassium, Blood 5.8 mmol/L (3.5-5.5); Sodium, Blood 146 mmol/L (136-145)
--- NOTE | 2021-09-19 17:45 | NUR ---
SHIFT SUMMARY PT A/O X4 AND COOPERATIVE OF CARE. PT HR SR 60-90'S FOR MAJORITY OF SHIFT, BRIEF PERIOD PT HR REACHING 130-150'S FROM [id number]. OTHER VSS THROUGHOUT SHIFT WITH PT O2 SATS >94 % WITH PT ON RA FOR MAJORITY OF SHIFT. PT REPORTS "I AM NOT HAVING SO MANY BOWEL MOVEMENTS SINCE I GOT THE IMODIUM THIS MORNING." PT HAS BEEN UP TO BEDSIDE COMMODE,TOLERATED WELL. NO REPORT OF CHEST PAIN/PRESSURE THROUGHOUT SHIFT. PT REPORTS PERIODS OF DYSOPNEA, BUT STATES "IT DOESN'T TAKE LONG FOR ME TO CATCH MY BREATH AGAIN." PT POTASSIUM LEVELS HIGH, DR NOTIFIED, MEDS ADJUSTED. BED IN LOWEST POSITION, CALL LIGHT WITHIN REACH.
[2021-09-20 03:57] LABS: BASOPHILS ABSOLUTE AUTO 0.02 K/mm3 (0.00-0.23); BASOPHILS PERCENT AUTO 0 % (0-2); EOSINOPHILS ABSOLUTE AUTO 0.11 K/mm3 (0.00-0.68); EOSINOPHILS PERCENT AUTO 1 % (0-6); Hematocrit 28.6 % (37.0-53.0); Hemoglobin 8.9 g/dL (13.5-17.5); IMMATURE GRAN ABSOLUTE AUTO 0.13 K/mm3 (0.00-0.10); IMMATURE GRAN PERCENT AUTO 1 % (0-1); LYMPHOCYTES ABSOLUTE AUTO 1.28 K/mm3 (0.84-5.20); LYMPHOCYTES PERCENT AUTO 10 % (21-46); MONOCYTES ABSOLUTE AUTO 1.14 K/mm3 (0.16-1.47); MONOCYTES PERCENT AUTO 8 % (4-13); Mean Corpuscular HGB 31.7 pg (26.0-34.0); Mean Corpuscular HGB Conc 31.1 g/dL (31.5-36.5); Mean Corpuscular Volume 102 fL (80-100); Mean Platelet Volume 9.8 fL (9.1-12.4); NEUTROPHILS ABSOLUTE AUTO 10.85 K/mm3 (1.96-9.15); NEUTROPHILS PERCENT AUTO 80 % (41-73); NRBC ABSOLUTE 0.06 K/mm3 (0.00-0.02); NRBC Auto 0.4 /100 WBC (0.0-0.2); Platelet Count 207 K/mm3 (150-400); RDW Standard Deviation 65.2 fL (35.1-46.3); Red Blood Cell Count 2.81 M/mm3 (4.30-5.90); White Blood Cell Count 13.53 K/mm3 (4.00-11.30)
[2021-09-20 04:15] LABS: Magnesium, Blood 1.2 mg/dL (1.6-2.4)
[2021-09-20 04:31] LABS: Albumin, Blood 1.9 g/dL (3.4-5.0); Anion Gap 5 mmol/L (6-16); Blood Urea Nitrogen 13 mg/dL (8-24); Bun/Creatinine Ratio 7.5 (12.0-20.0); CO2, Blood 18 mmol/L (21-32); Calcium, Blood 7.6 mg/dL (8.5-10.1); Chloride, Blood 125 mmol/L (98-108); Creatinine, Blood 1.73 mg/dL (0.60-1.20); Glomerular Filtration Rate 40 (60-); Glucose, Blood 94 mg/dL (70-99); Potassium, Blood 6.1 mmol/L (3.5-5.5); Sodium, Blood 148 mmol/L (136-145)
--- NOTE | 2021-09-20 07:19 | NUR ---
SHIFT SUMMARY [id number] PT SLEPT WELL OVERNIGHT, VSS PER PT TREND - TACHYCARDIC W/ACTIVITY. SIGNIFICANT SOA W/EXERTION AND AUDIBLE WHEEZING. PT MAINTAINS O2 SAT @99-100% DURING THESE EPISODES. TAKES 5-10 MINUTES TO RECOVER. ON RA OVERNIGHT. LOOSE MUCUOSY BM X3. NO COMPLAINTS OF PAIN. NOTIFIED DR. LEONARD OF K+ OF 6.1 THIS AM AND ORDERS RECEIVED (SEE EMAR FOR DETAILS).
--- NOTE | 2021-09-20 09:17 | NUR ---
AM NOTE: PATIENT ALERT AND ORIENTED. SLEEPY THIS AM. STATES HE DID NOT GET SLEEP LAST NIGHT. PERRLA. OVERALL WEAK. ABLE TO STAND AND TRANSFER TO BEDSIDE COMMODE WITH ONE PERSON ASSIST. DENIES NUMBNESS/TINGLING. ON ROOM AIR SATING 100%. LUNGS SOUNDING DIMINISHED. WHEN UP TO BSC OR TALKING AT TIMES PATIENT GETS VERY SOB, TACHYPNEA, AND WHEEZY. PATIENT STATES HE "LOOSES HIS BREATH". ABLE TO RECOVER IN LESS THAN 10 MIN. TELE SHOWING SINUS RHYTHM WITH HR 80'S. DENIES CHEST PAIN/PRESSURE. DENIES ABDOMINAL PAIN/NAUSEA. USING URINAL. STILL HAVE EPISODES OF DIARRHEA. ATTENDS IN PLACE. PRN IMMODIUM GIVEN THIS AM. BLOOD SUGAR LOW DUE TO IV INSULIN GIVEN FOR POTASSIUM. PATIENT ABLE TO DRINK JUICE AND EAT SMALL BITES. TRENDING IN RIGHT DIRECTION. WILL CONTINUE TO MONITOR CBG. D5 1/2 NS AND MAG SULFATE INFUSING AT THIS TIME. CALL LIGHT IN REACH. WILL CONTINUE TO MONITOR.
[2021-09-20 14:34] LABS: Anion Gap 5 mmol/L (6-16); Blood Urea Nitrogen 13 mg/dL (8-24); Bun/Creatinine Ratio 7.5 (12.0-20.0); CO2, Blood 20 mmol/L (21-32); Calcium, Blood 7.8 mg/dL (8.5-10.1); Chloride, Blood 119 mmol/L (98-108); Creatinine, Blood 1.74 mg/dL (0.60-1.20); Glomerular Filtration Rate 40 (60-); Glucose, Blood 104 mg/dL (70-99); Phosphorus, Blood 2.6 mg/dL (2.5-4.9); Potassium, Blood 5.6 mmol/L (3.5-5.5); Sodium, Blood 144 mmol/L (136-145)
--- NOTE | 2021-09-20 17:11 | NUR ---
SHIFT SUMMARY: NO ACUTE CHANGES THROUGHOUT SHIFT. REMAINS ON ROOM AIR. TELE CONTINUES TO SHOW SINUS RHYTHM WITH HR 70-80'S. BP STABLE. DENIES DIZZINESSS, CHEST PAIN/PRESSURE. EATING LARGER AMOUNTS THROUGHOUT EACH MEAL. BLOOD SUGAR IMPROVED THROUGHOUT MORNING AND AFTERNOON. MULTIPLE SMALL LIQUID STOOLS. ONE EPISODE OF INCONTINENCE. USING URINAL IN BED. UP TO [facility] WITH STANDBY ASSIST. PRN IMODIUM GIVEN, SEE EMAR. PATIENT COMPLAINS OF BACK PAIN, MEDICATED WITH HOME DOSE NORCO WITH GOOD RELIEF. D5 1/2 NS X 1 LITER INFUSED. MAG REPLACED THIS AM. POWERGLIDE SALINE LOCKED AT THIS TIME. BARRIER CREAM APPLIED TO COCCYX. PATIENT ABLE TO TURN SELF IN BED, ASSISTING WITH BOOSTS. AT BEDSIDE. DENIES NEEDS AT THIS TIME. WILL CONTINUE TO MONITOR AND REPORT OFF.
--- NOTE | 2021-09-20 21:05 | NUR ---
UPDATE THIS RN TOOK PT'S BLOOD SUGAR UPON SHIFT ARRIVAL D/T PT HAVING LOW BLOOD SUGAR DURING DAY. BLOOD SUGAR 59. PT PROVIDED WITH PUDDING, PT REFUSING JUICE D/T DIARRHEA. PHYSICIAN NOTIFIED, ORDERS FOR AMP OF D50 ONCE AND Q 6 BLOOD SUGAR CHECKS. PT'S MOST RECENT BLOOD SUGAR 104.
--- NOTE | 2021-09-20 23:38 | NUR ---
UPDATE PHYSICIAN NOTIFIED OF LOC CBG. ORDERS FOR 1 FULL AMP OF D50 TO BE GIVEN.
[2021-09-21 03:57] LABS: BASOPHILS ABSOLUTE AUTO 0.03 K/mm3 (0.00-0.23); BASOPHILS PERCENT AUTO 0 % (0-2); EOSINOPHILS ABSOLUTE AUTO 0.26 K/mm3 (0.00-0.68); EOSINOPHILS PERCENT AUTO 2 % (0-6); IMMATURE GRAN ABSOLUTE AUTO 0.13 K/mm3 (0.00-0.10); IMMATURE GRAN PERCENT AUTO 1 % (0-1); LYMPHOCYTES ABSOLUTE AUTO 1.12 K/mm3 (0.84-5.20); LYMPHOCYTES PERCENT AUTO 9 % (21-46); MONOCYTES ABSOLUTE AUTO 1.29 K/mm3 (0.16-1.47); MONOCYTES PERCENT AUTO 10 % (4-13); Mean Corpuscular HGB 31.6 pg (26.0-34.0); Mean Corpuscular Volume 102 fL (80-100); Mean Platelet Volume 10.1 fL (9.1-12.4); NEUTROPHILS ABSOLUTE AUTO 10.13 K/mm3 (1.96-9.15); NEUTROPHILS PERCENT AUTO 78 % (41-73); NRBC ABSOLUTE 0.04 K/mm3 (0.00-0.02); NRBC Auto 0.3 /100 WBC (0.0-0.2); Platelet Count 216 K/mm3 (150-400); RDW Standard Deviation 67.4 fL (35.1-46.3); Red Blood Cell Count 2.85 M/mm3 (4.30-5.90); White Blood Cell Count 12.96 K/mm3 (4.00-11.30)
[2021-09-21 04:13] LABS: Albumin, Blood 1.9 g/dL (3.4-5.0); Anion Gap 5 mmol/L (6-16); Blood Urea Nitrogen 13 mg/dL (8-24); Bun/Creatinine Ratio 7.4 (12.0-20.0); CO2, Blood 20 mmol/L (21-32); Calcium, Blood 7.6 mg/dL (8.5-10.1); Chloride, Blood 117 mmol/L (98-108); Creatinine, Blood 1.76 mg/dL (0.60-1.20); Glomerular Filtration Rate 39 (60-); Glucose, Blood 99 mg/dL (70-99); Magnesium, Blood 1.6 mg/dL (1.6-2.4); Phosphorus, Blood 2.9 mg/dL (2.5-4.9); Potassium, Blood 5.1 mmol/L (3.5-5.5); Sodium, Blood 142 mmol/L (136-145)
--- NOTE | 2021-09-21 05:53 | NUR ---
SHIFT SUMMARY PT ALERT AND ORIENTED X 4. HR STABLE. BP STABLE. OXYGEN SATURATION MAINTAINED ABOVE 95% ON RA. PT HAVING EXP WHEEZES AND SOB AT TIMES. PHYSICIAN NOTIFIED AND ORDERS FOR BD PROTOCOL. PT SBA TO COMMODE. PT HAD 2 LOOSE BM'S DURING SHIFT. ABLE TO TURN SELF IN BED. USING URINAL AT BEDSIDE NEEDED. PT HYPOGLYCEMIC T/O SHIFT. PHYSICIAN NOTIFIED AND ORDERS PROVIDED. PT ENCOURAGED TO HAVE PO INTAKE WHEN BLOOD SUGAR LOW, PT WAS ALERT AND ASYMPTOMATIC. PT REFUSING JUICE OR PUDDING. PHYSICIAN AWARE. ORDERS PROVIDED. Q 6 BLOOD SUGARS ORDERED. NO CP OR PRESSURE. CALL LIGHT WITHIN REACH. WILL CONT TO MONITOR UNTIL REPORT GIVEN TO DAYSHIFT RN.
[2021-09-21] MEDS ORDERED: PANT40 PO (09:20)
[2021-09-21] MEDS ORDERED: BANATROL PLUS1 EAC1 PO (09:20)
[2021-09-21] MEDS ORDERED: CALCIUM 600-VI1 EAC6 PO (09:23)
[2021-09-21] MEDS ORDERED: LOPE2C PO (09:25)
[2021-09-21] MEDS ORDERED: MAGNESIUM OXID500 MG PO (09:27)
[2021-09-21] MEDS ORDERED: METO25ER PO (09:28)
--- NOTE | 2021-09-21 10:53 | NUR ---
DISCHARGE SUMMARY PATIENT IS ALERT AND ORIENTED, COOPERATIVE WITH CARE THIS AM. PATIENT DENIES CHEST PAIN/PRESSURE, SOB, NUMBNESS/TINGLING SENSATION. PATIENT DID COMPLAIN OF CHRONIC BACK PAIN RATING IT 6/10 HE WAS GIVEN PRN MEDICATION PER EMAR ORDERS WHICH WAS EFFECTIVE. TELE NSR IN 80-90'S. VSS. SPO2 OVER 90% RA. PATIENT HAD 1 LOOSE BM THIS AM. PATIENT WAS DISCHARGED TODAY. PATIENT AND HIS SPOUSE WERE EDUCATED ON DISCHARGE INSTRUCTIONS, MEDICATIONS, SCHEDULED FOLLOW UP APPOINTMENTS AND LAB DRAW, S/SX TO MONITOR FOR. PATIENT EDUCATED ON RESTARTING ELIQUIS PER DR ORDERS. PATIENT REPORTED UNDERSTANDING AND WAS DISCHARGED IN GOOD CONDITION. PATIENT LEFT ROOM AT 1044 VIA .
--- NOTE | 2021-09-21 11:17 | NUR ---
DIUSCHARGE SUMMARY I HAVE REVIEWED THE SWEEPER OPERATOR [employer] DOCUMENTATION AND AM IN AGREEMENT WITH ALL EXCEPT THE FOLLOWING. SPO2 >90% ON RA, LS CLEAR T/O DIM IN BASES. PT HAS RED/PURPLE PLAQUE RASH SCATTERED T/O BODY, HAS hx OF PSORIASIS. SCATTERED BRUISING NOTED. WOUND TO RIGHT GREAT TOE, DRESSING PLACE C/D/I. RED AREA TO COCCYX, BLANCABLE. PT AND SPOUSE EDUCATED ON DISCHARGE INSTUCTIONS, PRESCRIPTIONS, FOLLOW UP APPOINTMENT WITH PCP AND SPECIAL WARFARE OPERATOR AND LABS. CLARIFIED WITH DR MORA WHEN TO RESTART THE ELIQUIS, NEW ORDER TO RESTART ELIQUIS STARTING TOMORROW 09/22/21 IN THE AM.
== END 2021-09-21 10:51 | disposition home or self-care (01) | DRG 378 ==
LOC: ER 11:44 → ERHOLD 20:37 → PCU 20:37
PROVIDERS: Emergency Medicine; Family Medicine; Internal Medicine Endocrinology, Diabetes & Metabolism; Physician Assistant; Student in an Organized Health Care Education/Training Program; ADMIT Internal Medicine
PROC: 30233N1 Transfusion of Nonautologous Red Blood Cells into Peripheral Vein, Percutaneous Approach (ICD-10-PCS; principal; 2021-09-15)
DX: K92.2 Gastrointestinal hemorrhage, unspecified (principal); D62 Acute posthemorrhagic anemia; Z20.822 Contact with and (suspected) exposure to COVID-19; I12.9 Hypertensive chronic kidney disease with stage 1 through stage 4 chronic kidney disease, or unspecified chronic kidney disease; N18.9 Chronic kidney disease, unspecified; L40.9 Psoriasis, unspecified; I48.91 Unspecified atrial fibrillation; E87.6 Hypokalemia; E83.42 Hypomagnesemia; E83.51 Hypocalcemia; M45.9 Ankylosing spondylitis of unspecified sites in spine; G89.29 Other chronic pain; R19.7 Diarrhea, unspecified; E86.0 Dehydration; T45.1X5A Adverse effect of antineoplastic and immunosuppressive drugs, initial encounter; Z79.01 Long term (current) use of anticoagulants; Z79.899 Other long term (current) drug therapy
CPT/HCPCS: 0241U; 36415; 36430; 71046; 80048; 80053; 80069; 82947; 83605; 83735; 84132; 84484; 85014; 85018; 85025; 85027; 86850; 86900; 86901; 86923; 87015; 87045; 87046; 87205; 87493; 87507; 87899; 93005; 93010; 94640; 94664; 94760; 96365; 96366; 96375; 96376; 99285-25; A9270; C1751; C9113; J0610; J1160; J1815; J1940; J2405; J3475; J3480; J7030; J7040; J7042; J7050; J7060; J7120; J7121; P9016

== ENCOUNTER 2021-11-12 17:10 | Inpatient (IN) | payer MEDICARE ==
[~2021-11-12] VITALS: Ht 165.1 cm; Wt 74.8 kg
[~2021-11-12 17:10] MED LIST changes: +BANATROL PLUS1 EAC1 PO; +CALCIUM 600-VI1 EAC6 PO; +FOLI1 PO; +LOPE2C PO; +LOSA25; +LOSA50 PO; +MAGNESIUM OXID500 MG PO; +METO25ER PO; +METOPROLOL SUCC25 MG PO; +METTREX2.5 PO; +PANT40 PO; +POTA10T PO
[2021-11-12 18:30] LABS: Calcium, Ionized (POC) 0.73 mmol/L (1.10-1.46); Chloride (POC) 83 mmol/L (98-108); Creatinine (POC) 1.9 mg/dL (0.8-1.3); Glucose (ISTAT POC) 70 mg/dL (70-99); Hemoglobin (POC) 10.5 g/dL (13.5-17.5); Potassium (POC) <2.0 mmol/L (3.5-5.5); Sodium (POC) 126 mmol/L (135-148); Total CO2 (POC) 25 mmol/L (21-32)
[2021-11-12 18:33] LABS: BASOPHILS ABSOLUTE AUTO 0.03 K/mm3 (0.00-0.23); BASOPHILS PERCENT AUTO 0 % (0-2); EOSINOPHILS ABSOLUTE AUTO 0.05 K/mm3 (0.00-0.68); EOSINOPHILS PERCENT AUTO 0 % (0-6); Hematocrit 32.2 % (37.0-53.0); Hemoglobin 10.8 g/dL (13.5-17.5); IMMATURE GRAN ABSOLUTE AUTO 0.06 K/mm3 (0.00-0.10); IMMATURE GRAN PERCENT AUTO 1 % (0-1); LYMPHOCYTES ABSOLUTE AUTO 1.55 K/mm3 (0.84-5.20); LYMPHOCYTES PERCENT AUTO 14 % (21-46); MONOCYTES ABSOLUTE AUTO 0.76 K/mm3 (0.16-1.47); MONOCYTES PERCENT AUTO 7 % (4-13); Mean Corpuscular HGB 31.9 pg (26.0-34.0); Mean Corpuscular HGB Conc 33.5 g/dL (31.5-36.5); Mean Corpuscular Volume 95 fL (80-100); Mean Platelet Volume 8.8 fL (9.1-12.4); NEUTROPHILS ABSOLUTE AUTO 9.03 K/mm3 (1.96-9.15); NEUTROPHILS PERCENT AUTO 79 % (41-73); Platelet Count 561 K/mm3 (150-400); RDW Coefficient Variation 14.8 % (11.7-14.2); RDW Standard Deviation 51.8 fL (35.1-46.3); Red Blood Cell Count 3.39 M/mm3 (4.30-5.90); White Blood Cell Count 11.48 K/mm3 (4.00-11.30)
[2021-11-12 18:51] LABS: International Normalized Ratio 1.3; Prothrombin Time Results 13.4 Sec (9.7-11.5)
[2021-11-12 18:52] LABS: Albumin, Blood 1.8 g/dL (3.4-5.0); Albumin/Globulin Ratio 0.4 (0.8-1.8); Bilirubin, Total 0.4 mg/dL (0.1-1.0); Bun/Creatinine Ratio 6.9 (12.0-20.0); Calcium, Blood 5.9 mg/dL (8.5-10.1); Creatinine, Blood 1.75 mg/dL (0.60-1.20); Globulin, Blood 4.2 g/dL (2.2-4.0)
[2021-11-12 18:54] LABS: Magnesium, Blood 0.9 mg/dL (1.6-2.4); Phosphorus, Blood 4.6 mg/dL (2.5-4.9)
--- NOTE | 2021-11-12 23:00 | NUR ---
PT ADMITTED TO ROOM ICU 8 UNDER PCU STATUS. PT SLIDE TRANSFERRED TO BED. PT SOMEWHAT ANXIOUS, AND DOES CALLS TO BE REPOSITIONED FREQUENTLY. PT HAS UNFORTUNATELY PULLED OUT HIS IV THAT WAS IN HIS LEFT AC. PT HAD BEEN PICKING AT DRESSING, AND WHILE LIFTING TEGRADERM, IV BECAME DISLODGED. WILL START ANOTHER IV IF IT BECOMES NECESSARY. WILL REVIEW CHART AND PLAN OF CARE FOR THIS PT.
--- NOTE | 2021-11-13 03:00 | NUR ---
PT RECEIVES 500 ML NORMAL SALINE BOLUS SECONDARY TO REMAINING WITH HYPOTENSION. THIS IS ONLY MODERATELY AFFECTIVE. PT REMAINS IN SINUS RHYTHM WITH OCCASSIONAL ECTOPY. NO COMPLAINTS OF DYSNEA OR CHEST PAIN. PT DOES COMPLAIN OF FEELING TOO WARM. ASKS FOR FAN. THIS PROVIDED. WILL CONTINUE TO MONITOR.
[2021-11-13 03:28] LABS: Albumin, Blood 1.6 g/dL (3.4-5.0); Albumin/Globulin Ratio 0.4 (0.8-1.8); Bilirubin, Total 0.4 mg/dL (0.1-1.0); Bun/Creatinine Ratio 6.6 (12.0-20.0); Calcium, Blood 5.8 mg/dL (8.5-10.1); Creatinine, Blood 1.67 mg/dL (0.60-1.20); Globulin, Blood 3.9 g/dL (2.2-4.0); Potassium, Blood 3.6 mmol/L (3.5-5.5); Total Protein, Blood 5.5 g/dL (6.4-8.2)
[2021-11-13 03:32] LABS: BASOPHILS ABSOLUTE AUTO 0.05 K/mm3 (0.00-0.23); BASOPHILS PERCENT AUTO 0 % (0-2); EOSINOPHILS ABSOLUTE AUTO 0.09 K/mm3 (0.00-0.68); EOSINOPHILS PERCENT AUTO 1 % (0-6); Hematocrit 32.1 % (37.0-53.0); Hemoglobin 10.4 g/dL (13.5-17.5); IMMATURE GRAN ABSOLUTE AUTO 0.06 K/mm3 (0.00-0.10); IMMATURE GRAN PERCENT AUTO 0 % (0-1); LYMPHOCYTES ABSOLUTE AUTO 2.17 K/mm3 (0.84-5.20); LYMPHOCYTES PERCENT AUTO 14 % (21-46); MONOCYTES PERCENT AUTO 7 % (4-13); Mean Corpuscular HGB 31.9 pg (26.0-34.0); Mean Corpuscular HGB Conc 32.4 g/dL (31.5-36.5); Mean Corpuscular Volume 99 fL (80-100); NEUTROPHILS ABSOLUTE AUTO 11.79 K/mm3 (1.96-9.15); NEUTROPHILS PERCENT AUTO 77 % (41-73); Platelet Count 563 K/mm3 (150-400); RDW Coefficient Variation 14.7 % (11.7-14.2); RDW Standard Deviation 53.7 fL (35.1-46.3); Red Blood Cell Count 3.26 M/mm3 (4.30-5.90); White Blood Cell Count 15.26 K/mm3 (4.00-11.30)
[2021-11-13 03:41] LABS: pH Blood Arterial 7.29 (7.35-7.45)
--- NOTE | 2021-11-13 04:00 | NUR ---
ONE OF THE FRONT TEETH WAS NOTED TO HAVE FALLEN OUT DURING INTUBATION. THE TOOTH WAS PLACED IN A SPECIMEN CONTAINER ON THE COUNTER.
[2021-11-13 04:42] LABS: Source, Urine Foley catheter
[2021-11-13 04:44] LABS: Bilirubin, Urine Neg (Neg); Blood, Urine 4+ (Neg); Glucose Qualitative, Urine Neg (Neg); Ketones, Urine Neg (Neg); Leukocyte Esterase, Urine Neg (Neg); Nitrite, Urine Neg (Neg); Protein, Urine 2+ (Neg); Specific Gravity, Urine 1.015 (1.003-1.022); Urobilinogen, Urine 1+ (Normal)
[2021-11-13 04:51] LABS: Appearance, Urine Clear (Clear); Color, Urine Yellow (P-Yellow)
[2021-11-13 04:52] LABS: Amorphous Light (0-Heavy); Bacteria Rare /hpf; Mucus Light (0-Heavy); Squamous Epithelial Cells Rare /hpf (Few); White Blood Cells, Urine 0-2 /hpf (0-5)
[2021-11-13 04:55] LABS: U Amphetamine Screen Not Detected; U Barbituate Screen Not Detected; U Benzodiazapine Screen Not Detected; U Buprenorphine Screen Not Detected; U Cannabinoids Screen Not Detected; U Cocaine Screen Not Detected; U Methadone Screen Not Detected; U Methamphetamine Screen Not Detected; U Opiates Screen DETECTED; U Oxycodone Screen Not Detected; U Phencyclidine Screen Not Detected; U Propoxyphene Screen Not Detected
--- NOTE | 2021-11-13 05:50 | NUR ---
PT NOTED TO HAVE HEART RATE SLOW TO 34, AND THEN TO 31. HALF AMP OF ATROPINE GIVEN TWICE WITH RETURN OF HEART RATE > 60 BPM. PT BECOMES OBTUNDED, AND MINIMALLY RESPONSIVE TO VERBAL AND TACTILE STIMULIN. DID ADMINISTER .4 MG NARCAN WITH LITTLE AFFECT. PT BEGINS TO HAVE AGONAL BREATHING PATTERN. CALLED FOR RESPIRATORY THERAPY TO PREP FOR PROBABLE INTUBATION. DR LEONARD COMES TO ROOM. DR RIDLEY FROM EMERGENCY DEPARTMENT COMES TO ROOM AND DOES RAPID INTUBATION. VERIFIED WITH CXR WITH RESPIRATORY NEEDING TO ADJUST PER DR RONQUILLO. CENTRAL LINE PLACED TO RIGHT GROIN. PRESSORS PLACED TO CENTRAL LINE. PT'S FIANCE TO ROOM. UPDATE GIVEN. DR RONQUILLO ALSO SPEAKS WITH KAMRYN PT'S FIANCE. ANSWERS QUESTIONS PRESENTED. WILL CONTINUE TO MONITOR PT, ADJUST PRESSORS TO MAINTAIN MAP > 65, AND WILL REPORT OFF TO ONCOMING RN.
--- NOTE | 2021-11-13 08:03 | NUR ---
TOOK OVER CARE OF PT AT 0700, PT ON VENTILATOR ACVC 18/375/40%/5, ETCO2 21, TEMP.94.5, HEATING BLANKET IN PLACE, DRIPS OF DOPAMINE AT 2, LEVO AT 8, VASO AT .04, PROPOFOL AT 30. BOYD BAG EMPTIED WITH 100ML OF URINE.
[2021-11-13 09:08] LABS: Magnesium, Blood 1.6 mg/dL (1.6-2.4)
[2021-11-13 09:10] LABS: Albumin, Blood 1.5 g/dL (3.4-5.0); Albumin/Globulin Ratio 0.4 (0.8-1.8); Bilirubin, Total 0.6 mg/dL (0.1-1.0); Bun/Creatinine Ratio 6.7 (12.0-20.0); Calcium, Blood 6.2 mg/dL (8.5-10.1); Creatinine, Blood 1.49 mg/dL (0.60-1.20); Globulin, Blood 3.7 g/dL (2.2-4.0); Potassium, Blood 2.1 mmol/L (3.5-5.5); Total Protein, Blood 5.2 g/dL (6.4-8.2)
--- NOTE | 2021-11-13 09:12 | NUR ---
DOPAMINE STOPPED FOR ECHO
--- NOTE | 2021-11-13 09:45 | NUR ---
Echocardiogram completed.
[2021-11-13 09:48] LABS: Base Excess Venous 0.4 mmol/L; Bicarbonate Venous 24.8 mmol/L (24.0-30.0); Hematocrit 29.8 % (37.0-53.0); Hemoglobin 10.2 g/dL (13.5-17.5); Mean Corpuscular HGB 31.5 pg (26.0-34.0); Mean Corpuscular HGB Conc 34.2 g/dL (31.5-36.5); Platelet Count 493 K/mm3 (150-400); RDW Coefficient Variation 14.3 % (11.7-14.2); RDW Standard Deviation 48.6 fL (35.1-46.3); Red Blood Cell Count 3.24 M/mm3 (4.30-5.90); White Blood Cell Count 14.05 K/mm3 (4.00-11.30); pH Blood Venous 7.41 (7.34-7.37)
[2021-11-13 10:03] LABS: Mean Corpuscular Volume 92 fL (80-100)
[2021-11-13 11:08] LABS: Bun/Creatinine Ratio 7.1 (12.0-20.0); Calcium, Blood 6.2 mg/dL (8.5-10.1); Creatinine, Blood 1.41 mg/dL (0.60-1.20); Potassium, Blood 2.3 mmol/L (3.5-5.5)
[2021-11-13 11:29] LABS: Magnesium, Blood 1.6 mg/dL (1.6-2.4)
[2021-11-13 11:39] LABS: Albumin, Blood 1.4 g/dL (3.4-5.0); Albumin/Globulin Ratio 0.4 (0.8-1.8); Bilirubin, Total 0.6 mg/dL (0.1-1.0); Bun/Creatinine Ratio 6.1 (12.0-20.0); Calcium, Blood 6.2 mg/dL (8.5-10.1); Creatinine, Blood 1.47 mg/dL (0.60-1.20); Globulin, Blood 3.6 g/dL (2.2-4.0); Potassium, Blood 2.2 mmol/L (3.5-5.5)
--- NOTE | 2021-11-13 11:57 | NUR ---
AT BEDSIDE, UPDATED ON ALL CRITICAL LABS
[2021-11-13 12:02] LABS: Adenovirus F 40/41 Not Detected (NOT DETECT); Astrovirus Not Detected (NOT DETECT); Campylobacter Sp Not Detected (NOT DETECT); Cryptosporidium Not Detected (NOT DETECT); Cyclospora Cayetanensis Not Detected (NOT DETECT); E. Coli O157 Not Detected (NOT DETECT); Entamoeba Histolytica Not Detected (NOT DETECT); Enteroaggregative E. coli-EAEC Not Detected (NOT DETECT); Enteropathogenic E. coli-EPEC Not Detected (NOT DETECT); Enterotoxigenic E. coli-ETEC Not Detected (NOT DETECT); Giardia Lamblia Not Detected (NOT DETECT); Norovirus GI/GII Not Detected (NOT DETECT); Plesiomonas Shigelloides Not Detected (NOT DETECT); Rotavirus A Not Detected (NOT DETECT); Salmonella Sp Not Detected (NOT DETECT); Sapovirus Not Detected (NOT DETECT); Shiga Toxin-prod E. coli-STEC Not Detected (NOT DETECT); Shigella/Enteroin E. coli-EIEC Not Detected (NOT DETECT); Vibrio Cholerae Not Detected (NOT DETECT); Vibrio Sp Not Detected (NOT DETECT); Yersinia Enterocolitica Not Detected (NOT DETECT)
--- NOTE | 2021-11-13 17:02 | NUR ---
SUMMARY PT VENTED ON ACVC 18/375/50%/10, DRIPS VASO.04, LEVO 14, DOPAMINE 2, PROPOFOL 40MCG, TMAX 100.7 F NEURO: SLOW TO RESPOND AFTER SEDATION INTERUPTION, FOLLOWS COMMANDS IN ALL EXTREMETIES, TREMORS AT BASELINE PER FAMILY, RIGHT PUPIL IRREGULAR AT BASELINE DUE TO OLD INJURY. LUNGS; DIMINISHED BASES, BALLARD SPUTUM- SAMPLE SENT CARDIAC: IRREGULAR RATE WITH INTERMITTENT PVC'S. POTASSIUM CRITICALLY LOW WITH 60MEQ REPLACED TODAY, 2GRAMS CALCIUM GLUCONATE GIVEN, ONE GRAM MAG GIVEN. TRACE EDEMA IN ALL EXTREMETIES. INTERMITTENT NARROW PULSE PRESSURES. NO PLEURAL RUB NOTED. SKIN; HX OF PSORIASIS, LOTION APPLIED THROUGHOUT DAY, DARK CRUSTED PATCHES THROUGHOUT. GI: OG PLACED, RESIDUALS OF CLEAR SALIVA, NO GREEN OR YELLOW BILE, LOOSE STOOLS- STOOL SAMPLE SENT : BOYD IN PLACE, CLEAR, YELLOW URINE, APPROX 75ML/HR OUTPUT
[2021-11-13 18:02] LABS: Magnesium, Blood 1.6 mg/dL (1.6-2.4); Potassium, Blood 3.1 mmol/L (3.5-5.5)
--- NOTE | 2021-11-13 21:54 | NUR ---
SHIFT ASSESSMENT ASSUMED CARE OF PT @ 1900. PT INTUBATED AND SEDATED. PULLS AWAY TO NOXIOUS STIMULI, WEAKLY MOVING ALL EXTREMITIES WHEN STIMULATED. VENT SETTINGS-AC:18/375/40%/ PEEP-5 c O2 SATS >95%. PROPOFOL INFUSING @ 45MCG/KG/MIN, LEVOPHED @ 10MCG/MIN, DOPAMINE @ 2MCG/KG/MIN, AND VASOPRESSIN @ 0.04U/MIN. PTS BP IS LABILE. NSR ON THE PLATFORM WORKER. OGT CLAMPED. TEMP BOYD CATH DRAINING YELLOW URINE, AFEBRILE. SKIN EXTREMELY FLAKY. BL SOFT WRIST RESTRAINTS REMAIN ON TO PROTECT ETT. WILL CONTINUE TO MONITOR.
[2021-11-14 03:38] LABS: BASOPHILS ABSOLUTE AUTO 0.03 K/mm3 (0.00-0.23); BASOPHILS PERCENT AUTO 0 % (0-2); EOSINOPHILS ABSOLUTE AUTO 0.03 K/mm3 (0.00-0.68); EOSINOPHILS PERCENT AUTO 0 % (0-6); Hematocrit 27.3 % (37.0-53.0); Hemoglobin 9.6 g/dL (13.5-17.5); IMMATURE GRAN ABSOLUTE AUTO 0.07 K/mm3 (0.00-0.10); IMMATURE GRAN PERCENT AUTO 0 % (0-1); LYMPHOCYTES ABSOLUTE AUTO 1.78 K/mm3 (0.84-5.20); LYMPHOCYTES PERCENT AUTO 11 % (21-46); MONOCYTES ABSOLUTE AUTO 1.03 K/mm3 (0.16-1.47); MONOCYTES PERCENT AUTO 6 % (4-13); Mean Corpuscular HGB 31.7 pg (26.0-34.0); Mean Corpuscular HGB Conc 35.2 g/dL (31.5-36.5); Mean Corpuscular Volume 90 fL (80-100); Mean Platelet Volume 8.9 fL (9.1-12.4); NEUTROPHILS ABSOLUTE AUTO 13.23 K/mm3 (1.96-9.15); NEUTROPHILS PERCENT AUTO 82 % (41-73); Platelet Count 440 K/mm3 (150-400); RDW Coefficient Variation 14.9 % (11.7-14.2); RDW Standard Deviation 49.3 fL (35.1-46.3); Red Blood Cell Count 3.03 M/mm3 (4.30-5.90); White Blood Cell Count 16.17 K/mm3 (4.00-11.30)
[2021-11-14 04:01] LABS: PCO2 Arterial 29.9 mmHg (35-45); PO2 Arterial 85.1 mmHg (80-100); pH Blood Arterial 7.51 (7.35-7.45)
[2021-11-14 04:01] LABS: Albumin, Blood 1.5 g/dL (3.4-5.0); Albumin/Globulin Ratio 0.4 (0.8-1.8); Bilirubin, Total 0.5 mg/dL (0.1-1.0); Bun/Creatinine Ratio 7.1 (12.0-20.0); Calcium, Blood 6.9 mg/dL (8.5-10.1); Creatinine, Blood 1.27 mg/dL (0.60-1.20); Globulin, Blood 3.8 g/dL (2.2-4.0); Potassium, Blood 3.2 mmol/L (3.5-5.5); Total Protein, Blood 5.3 g/dL (6.4-8.2)
--- NOTE | 2021-11-14 07:10 | NUR ---
SHIFT SUMMARY PT REMAINS INTUBATED AND SEDATED. ABLE TO TITRATE FIO2 TO 30% c O2 SATS > 95%. DOPAMINE CONTINUES @ 2, LEVOPHED @ 8, AND VASOPRESSIN ON SB c MAP >65. PT RECEIVING 1G CALCIUM GLUCONATE, 1 GRAM OF MAGNESIUM SULFATE, AND 20MEQ KCL THIS AM. NO OTHER ACUTE CHANGES IN PT CONDITION DURING THE NIGHT. REPORT GIVEN TO ONCOMING NURSE.
--- NOTE | 2021-11-14 07:18 | NUR ---
TOOK OVER CARE OF PT AT 0700, PT VENTED WITH ACVC 16/375/30%/10, DOPAMINE AT 2, LEVO AT 8, VASO ON SB, PROPOFOL AT 45.
[2021-11-14 10:05] LABS: Magnesium, Blood 1.7 mg/dL (1.6-2.4)
[2021-11-14 10:06] LABS: Phosphorus, Blood 1.6 mg/dL (2.5-4.9); Potassium, Blood 3.4 mmol/L (3.5-5.5)
--- NOTE | 2021-11-14 14:34 | NUR ---
1150ML OF SEROSANGINOUS FLUID REMOVED FROM RIGHT PLEURAL SPACE
[2021-11-14 14:56] LABS: Automated BF RBC Count 0.007 M/mm3 (0-0); Automated BF WBC Count 0.224 K/mm3 (0-999); Body Fluid WBC Count 224 /mm3 (0-999); RBC Count, Body Fluid 7000 /mm3 (0-0)
[2021-11-14 15:09] LABS: Albumin, Body Fluid 0.9 g/dL; Triglycerides, Body Fluid 33 mg/dL
[2021-11-14 15:17] LABS: Glucose, Body Fluid 136 mg/dL; Protein, Body Fluid 2.4 g/dL
[2021-11-14 15:19] LABS: Lactate Dehydrogenase, Body Fl 259 U/L
[2021-11-14 15:20] LABS: pH, Body Fluid 7.9
[2021-11-14 15:26] LABS: Appearance, Body Fluid Hazy (Clear); Color, Body Fluid Yellow (None-Yellow); Total Cell Count, Body Fluid 100
[2021-11-14 16:05] LABS: PCO2 Arterial 34.3 mmHg (35-45); PO2 Arterial 80.1 mmHg (80-100); pH Blood Arterial 7.43 (7.35-7.45)
--- NOTE | 2021-11-14 16:16 | NUR ---
PT EXTUBATED, ON 2L NC
--- NOTE | 2021-11-14 17:25 | NUR ---
SUMMARY NEURO; PT ALERT, BEGINING TO HOARSLY SPEAK SOME WORDS LUNGS; INTERMITTENT COUGHS, ON RA WITH O2 SATS OF 98%, LL LOBE STILL ABSENT. REMOVED 1150ML DURING THORACENTESIS ON RIGHT LOBE. SKIN; BASELINE PSORIASIS CARDIAC; SINUS ARRYTHIMIA, GENERALIZED +1 EDEMA, LEVO AT 4, DOPAMINE CURRENTLY ON SB. GI; NPO AT THIS TIME. ; YELLOW URINE, BOYD IN PLACE
--- NOTE | 2021-11-14 18:04 | NUR ---
PRESSURES OFF, PT ON RA.
[2021-11-14 18:28] LABS: Magnesium, Blood 1.8 mg/dL (1.6-2.4); Phosphorus, Blood 3.5 mg/dL (2.5-4.9); Potassium, Blood 3.6 mmol/L (3.5-5.5)
--- NOTE | 2021-11-14 19:35 | NUR ---
SHIFT ASSESSMENT PT ALERT AND ORIENTED, FOLLOWING ALL COMMANDS. VOICE REMAINS HOARSE BUT ABLE TO COMMUNICATE HIS NEEDS. PT STATES OVERALL HE FEELS MUCH BETTER & IN GOOD SPIRITS. HE IS C/O MODERATE TO SEVERE BACK PAIN, MEDICATED c PRN MEDS WITH ADEQUATE RELIEF. TEMP PROBE BOYD PATENT, PT AFEBRILE. VSS. WILL MONITOR CLOSELY.
[2021-11-15 04:12] LABS: Base Excess Venous 1.3 mmol/L; Bicarbonate Venous 25.4 mmol/L (24.0-30.0); PCO2 Venous 39.6 mmHg (38-42); pH Blood Venous 7.42 (7.34-7.37)
[2021-11-15 04:21] LABS: BASOPHILS ABSOLUTE AUTO 0.02 K/mm3 (0.00-0.23); BASOPHILS PERCENT AUTO 0 % (0-2); EOSINOPHILS ABSOLUTE AUTO 0.01 K/mm3 (0.00-0.68); EOSINOPHILS PERCENT AUTO 0 % (0-6); Hematocrit 27.6 % (37.0-53.0); Hemoglobin 9.7 g/dL (13.5-17.5); IMMATURE GRAN ABSOLUTE AUTO 0.06 K/mm3 (0.00-0.10); IMMATURE GRAN PERCENT AUTO 1 % (0-1); LYMPHOCYTES ABSOLUTE AUTO 0.99 K/mm3 (0.84-5.20); LYMPHOCYTES PERCENT AUTO 9 % (21-46); MONOCYTES ABSOLUTE AUTO 0.53 K/mm3 (0.16-1.47); MONOCYTES PERCENT AUTO 5 % (4-13); Mean Corpuscular HGB 31.9 pg (26.0-34.0); Mean Corpuscular HGB Conc 35.1 g/dL (31.5-36.5); Mean Corpuscular Volume 91 fL (80-100); NEUTROPHILS ABSOLUTE AUTO 9.63 K/mm3 (1.96-9.15); NEUTROPHILS PERCENT AUTO 86 % (41-73); Platelet Count 351 K/mm3 (150-400); RDW Coefficient Variation 15.6 % (11.7-14.2); RDW Standard Deviation 51.7 fL (35.1-46.3); Red Blood Cell Count 3.04 M/mm3 (4.30-5.90); White Blood Cell Count 11.24 K/mm3 (4.00-11.30)
[2021-11-15 04:33] LABS: Albumin, Blood 1.5 g/dL (3.4-5.0); Anion Gap 10 mmol/L (6-16); Blood Urea Nitrogen 7 mg/dL (8-24); Bun/Creatinine Ratio 5.5 (12.0-20.0); CO2, Blood 24 mmol/L (21-32); Calcium, Blood 7.5 mg/dL (8.5-10.1); Chloride, Blood 99 mmol/L (98-108); Creatinine, Blood 1.27 mg/dL (0.60-1.20); Glomerular Filtration Rate 63 (60-); Glucose, Blood 92 mg/dL (70-99); Phosphorus, Blood 3.8 mg/dL (2.5-4.9); Potassium, Blood 3.5 mmol/L (3.5-5.5); Sodium, Blood 133 mmol/L (136-145)
--- NOTE | 2021-11-15 06:19 | NUR ---
SHIFT SUMMARY PT ALERT AND ORIENTED, FOLLOWING COMMANDS, SLEPT FOR MOST OF THE NIGHT. PT DID REQUIRE LOW DOSE LEVOPHED FOR A FEW HOURS WHILE SLEEPING BUT CURRENTLY OFF c MAP >65. REMAINS ON RA c O2 SATS >90%. REPLACING CA WITH 1G CALCIUM GLUCONATE. OVER 2L URINE OUT VIA BOYD. NO BM. NO OTHER CHANGES TO NOTE. REPORT TO ONCOMING NURSE.
--- NOTE | 2021-11-15 07:23 | NUR ---
TOOK OVER CARE OF PT AT 0700, PT RESTING ON RA, ALL DRIPS OFF.
[2021-11-15 11:17] LABS: Automated BF WBC Count 0.809 K/mm3 (0-999); Body Fluid WBC Count 809 /mm3 (0-999); RBC Count, Body Fluid 10000 /mm3 (0-0)
--- NOTE | 2021-11-15 11:22 | NUR ---
925ML FLUID REMOVED FROM LEFT PLEURAL SPACE
[2021-11-15 11:29] LABS: Glucose, Body Fluid 98 mg/dL; Lactate Dehydrogenase, Body Fl 237 U/L; Protein, Body Fluid 2.2 g/dL
[2021-11-15 12:00] LABS: Appearance, Body Fluid Hazy (Clear); Color, Body Fluid Yellow (None-Yellow); Total Cell Count, Body Fluid 100
[2021-11-15 12:12] LABS: Magnesium, Blood 1.8 mg/dL (1.6-2.4); Phosphorus, Blood 3.5 mg/dL (2.5-4.9)
--- NOTE | 2021-11-15 17:11 | NUR ---
SUMMARY PT DOWNGRADED TO PCU STATUS TODAY. Q12 POTASSIUM LABS ORDERED FOR NEXT TWO DAYS. PO POTASSIUM AND CALCIUM REPLACEMENT ORDERED. CENTRAL LINE REMOVED WITHOUT INCIDENT, BOYD ALSO REMOVED AND PT HAS SINCE VOIDED. 6BEAT RUN OF VTACH-TELEMETRY CLIP PLACED IN CHART.
--- NOTE | 2021-11-15 20:32 | NUR ---
SHIFT ASSESSMENT ASSUMED CARE OF PT @ 1900. PT ALERT AND ORIENTED, FOLLOWING ALL COMMANDS, MOVING ALL EXTREMITIES. CURRENTLY NO COMPLAINTS. PT FINISHED WITH DINNER TRAY, ATE ABOUT 50%. WORKED WITH PT/OT TODAY, PT STATES HE FEELS MUCH BETTER BUT TIRED FROM TODAYS EVENTS. VSS. PT HAS CALL LIGHT WITHIN REACH, WILL MONITOR CLOSELY.
--- NOTE | 2021-11-15 23:00 | NUR ---
Got report from Collin HENDRICKS. Assumed Care of patient. Medicated for pain. Refused repositioning. Is able to shift self in bed. No change in assessment.
[2021-11-16 03:34] LABS: BASOPHILS ABSOLUTE AUTO 0.02 K/mm3 (0.00-0.23); BASOPHILS PERCENT AUTO 0 % (0-2); EOSINOPHILS ABSOLUTE AUTO 0.06 K/mm3 (0.00-0.68); EOSINOPHILS PERCENT AUTO 1 % (0-6); Hematocrit 25.7 % (37.0-53.0); Hemoglobin 8.8 g/dL (13.5-17.5); IMMATURE GRAN ABSOLUTE AUTO 0.07 K/mm3 (0.00-0.10); IMMATURE GRAN PERCENT AUTO 1 % (0-1); LYMPHOCYTES ABSOLUTE AUTO 1.28 K/mm3 (0.84-5.20); LYMPHOCYTES PERCENT AUTO 13 % (21-46); MONOCYTES ABSOLUTE AUTO 0.63 K/mm3 (0.16-1.47); MONOCYTES PERCENT AUTO 6 % (4-13); Mean Corpuscular HGB Conc 34.2 g/dL (31.5-36.5); Mean Corpuscular Volume 94 fL (80-100); Mean Platelet Volume 9.3 fL (9.1-12.4); NEUTROPHILS ABSOLUTE AUTO 8.06 K/mm3 (1.96-9.15); NEUTROPHILS PERCENT AUTO 80 % (41-73); NRBC ABSOLUTE 0.02 K/mm3 (0.00-0.02); NRBC Auto 0.2 /100 WBC (0.0-0.2); Platelet Count 253 K/mm3 (150-400); RDW Standard Deviation 54.4 fL (35.1-46.3); Red Blood Cell Count 2.75 M/mm3 (4.30-5.90); White Blood Cell Count 10.12 K/mm3 (4.00-11.30)
[2021-11-16 04:08] LABS: Albumin, Blood 1.4 g/dL (3.4-5.0); Albumin/Globulin Ratio 0.4 (0.8-1.8); Bilirubin, Total 0.2 mg/dL (0.1-1.0); Bun/Creatinine Ratio 7.2 (12.0-20.0); Calcium, Blood 7.1 mg/dL (8.5-10.1); Creatinine, Blood 1.25 mg/dL (0.60-1.20); Globulin, Blood 3.4 g/dL (2.2-4.0); Total Protein, Blood 4.8 g/dL (6.4-8.2)
--- NOTE | 2021-11-16 07:23 | NUR ---
TOOK OVER CAREOF PT AT 0720, PT RESTING ON RA.
--- NOTE | 2021-11-16 07:35 | NUR ---
SHIFT SUMMARY: AOX3, cooperative. Makes all needs known. Follows direction. LS clear, R/E. On RA with sats >95%. No cough or congestion. Sinus on monitor. Denies CP or palpitations. Abdomin soft. BTx4, Large loose BM noted. BS have been 69 snack was given, it was 69 again this am, he refused to have anything, said he will sip on his drinks. Able to reposition self mostly in bed. Refused to have linen change after BM was noted. Informed dayshift of need for linen change and blood sugars. He had no other complaints or changes this shift. CAll light in reach.
--- NOTE | 2021-11-16 15:45 | NUR ---
SUMMARY NEURO; AT BASELINE MUSK: GENERALIZED WEAKNESS, DECREASED ENDURANCE LUNGS: CLEAR UPPERS, DIMINISHED BASES SKIN; AT BASELINE, PSORIASIS CARDS: BASELINE AFIB, ELEQUIS RESTARTED ELECTROLYES STABILIZING SINCE PO REPLACEMENT ADDED PT UP WITH THEREAPY TODAY, HR UP TO 130'S WHILE WALKING AROUND BED BUT QUICKLY RESOLVES ONCE SITTING AGAIN. PT HAS DECIDED TO CHOOSE HOME CARE AND OUTPATIENT PT TO RECIEVE IV ABX TREATMENT. PLAN IS TO PLACE PICC PRIOR TO DISCHARGE.
--- NOTE | 2021-11-16 19:00 | NUR ---
ASSUMED CARE. REPORT RECEIVED FROM SULY RN. PT RESTING IN BED ATT. ALERT AND ORIENTED, ON ROOM AIR. NO ACUTE NEEDS ATT. WILL CONTINUE TO MONITOR.
--- NOTE | 2021-11-17 00:47 | NUR ---
TRANSFERRED PT AT APPROXIMATELY 0015. PT ALERT/ORIENTED, VS STABLE. NO ACUTE NEEDS NOTED. REPORT GIVEN TO SUPER[employer]OR [employer].
[2021-11-17 03:39] LABS: BASOPHILS ABSOLUTE AUTO 0.03 K/mm3 (0.00-0.23); BASOPHILS PERCENT AUTO 0 % (0-2); EOSINOPHILS ABSOLUTE AUTO 0.06 K/mm3 (0.00-0.68); EOSINOPHILS PERCENT AUTO 1 % (0-6); Hematocrit 26.8 % (37.0-53.0); IMMATURE GRAN ABSOLUTE AUTO 0.07 K/mm3 (0.00-0.10); IMMATURE GRAN PERCENT AUTO 1 % (0-1); LYMPHOCYTES ABSOLUTE AUTO 1.08 K/mm3 (0.84-5.20); LYMPHOCYTES PERCENT AUTO 11 % (21-46); MONOCYTES ABSOLUTE AUTO 0.75 K/mm3 (0.16-1.47); MONOCYTES PERCENT AUTO 8 % (4-13); Mean Corpuscular HGB 31.8 pg (26.0-34.0); Mean Corpuscular HGB Conc 33.6 g/dL (31.5-36.5); Mean Corpuscular Volume 95 fL (80-100); Mean Platelet Volume 8.9 fL (9.1-12.4); NEUTROPHILS ABSOLUTE AUTO 7.78 K/mm3 (1.96-9.15); NEUTROPHILS PERCENT AUTO 80 % (41-73); Platelet Count 198 K/mm3 (150-400); RDW Coefficient Variation 15.9 % (11.7-14.2); RDW Standard Deviation 55.2 fL (35.1-46.3); Red Blood Cell Count 2.83 M/mm3 (4.30-5.90); White Blood Cell Count 9.77 K/mm3 (4.00-11.30)
[2021-11-17 04:32] LABS: Albumin, Blood 1.5 g/dL (3.4-5.0); Albumin/Globulin Ratio 0.4 (0.8-1.8); Bilirubin, Total 0.5 mg/dL (0.1-1.0); Bun/Creatinine Ratio 7.6 (12.0-20.0); Calcium, Blood 7.2 mg/dL (8.5-10.1); Creatinine, Blood 1.18 mg/dL (0.60-1.20); Globulin, Blood 3.8 g/dL (2.2-4.0); Total Protein, Blood 5.3 g/dL (6.4-8.2)
--- NOTE | 2021-11-17 06:06 | NUR ---
SHIFT SUMMARY ASSUMED CARE OF PT AROUND 0045. PT IS A/OX4. NO ACUTE CHANGES DURING THE NIGHT. PT ATTEMPTED TO SLEEP DURING THE NIGHT BUT WAS FUSTRATED WHEN AWOKEN MULTIPLE TIMES. 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 PT IS STILL COUGHING UP GREEN PHLEM BUT HAS NO OTHER COMPLAINTS.
--- NOTE | 2021-11-17 15:17 | NUR ---
SHIFT SUMMARY: PLEURAL EFFUSION PATIENT IS A&OX4. VS ARE WNL AND IS ON RA. PAIN IS MANAGED WITH 2 NORCO. PATIENT HAD AN X-RAY DONE EARLIER THIS MORNING WHICH CAME BACK THE SAME THE LAST X-RAY. DR. RODRÍGUEZ SAID PATIENT WILL BE STAYING IN THE HOSPITAL A COUPLE MORE DAYS AND CAN BE TRANSFERRED TO MEDICAL FLOOR. HE IS TOLERATING PO INTAKE AND IS VOIDING. HE HAD LARGE LOOSE BM'S EARLIER. HE IS A SBA WITH FWW AND GAIT BELT. CALLS APPROPRIATELY. CALL LIGHT WITHIN REACH. THE PLAN IS TO CONTINUE IV ABX AND TO BE TRANSFERRED TO MEDICAL FLOOR WHEN POSSIBLE.
[2021-11-18 03:46] LABS: BASOPHILS ABSOLUTE AUTO 0.05 K/mm3 (0.00-0.23); BASOPHILS PERCENT AUTO 1 % (0-2); EOSINOPHILS ABSOLUTE AUTO 0.12 K/mm3 (0.00-0.68); EOSINOPHILS PERCENT AUTO 1 % (0-6); Hematocrit 26.1 % (37.0-53.0); Hemoglobin 8.6 g/dL (13.5-17.5); IMMATURE GRAN ABSOLUTE AUTO 0.07 K/mm3 (0.00-0.10); IMMATURE GRAN PERCENT AUTO 1 % (0-1); LYMPHOCYTES PERCENT AUTO 14 % (21-46); MONOCYTES ABSOLUTE AUTO 0.76 K/mm3 (0.16-1.47); MONOCYTES PERCENT AUTO 9 % (4-13); Mean Corpuscular HGB 31.9 pg (26.0-34.0); Mean Corpuscular Volume 97 fL (80-100); Mean Platelet Volume 9.3 fL (9.1-12.4); NEUTROPHILS ABSOLUTE AUTO 6.55 K/mm3 (1.96-9.15); NEUTROPHILS PERCENT AUTO 75 % (41-73); Platelet Count 209 K/mm3 (150-400); RDW Coefficient Variation 15.9 % (11.7-14.2); RDW Standard Deviation 56.7 fL (35.1-46.3); White Blood Cell Count 8.75 K/mm3 (4.00-11.30)
[2021-11-18 04:16] LABS: Alanine Aminotransfer (ALT/SGP <6 U/L (12-78); Albumin, Blood 1.4 g/dL (3.4-5.0); Albumin/Globulin Ratio 0.4 (0.8-1.8); Alk Phos 120 U/L (50-136); Anion Gap 6 mmol/L (6-16); Aspartate Aminotrans (AST/SGOT 21 U/L (12-37); Bilirubin, Total 0.4 mg/dL (0.1-1.0); Blood Urea Nitrogen 8 mg/dL (8-24); Bun/Creatinine Ratio 7.5 (12.0-20.0); CO2, Blood 27 mmol/L (21-32); Calcium, Blood 7.4 mg/dL (8.5-10.1); Chloride, Blood 108 mmol/L (98-108); Creatinine, Blood 1.06 mg/dL (0.60-1.20); Globulin, Blood 3.8 g/dL (2.2-4.0); Glomerular Filtration Rate 79 (60-); Glucose, Blood 84 mg/dL (70-99); Potassium, Blood 4.2 mmol/L (3.5-5.5); Sodium, Blood 141 mmol/L (136-145); Total Protein, Blood 5.2 g/dL (6.4-8.2)
--- NOTE | 2021-11-18 05:39 | NUR ---
[employer] MAINTENANCE MECHANIC SUMMARY PT HAS BEEN AXO X4 AND COMMUNICATING APPROPRIATELY. PT'S VSS STABLE AND AFEBRILE. PT DENYING ANY SIGNIFICANT PAIN OR NAUSEA THIS SHIFT. TELE SHOWING NSR W PAC'S IN THE 80'S THIS SHIFT. NO BOWEL MOVEMENTS THIS SHIFT. PT RESTING COMFORTABLY W CALL LIGHT WITHIN REACH FOR MOST OF THE NIGHT. WILL REPORT TO ONCOMING RN.
--- NOTE | 2021-11-18 17:37 | NUR ---
NO ACUTE EVENTS T/O SHIFT. SEE DOCUMENTATION. PT HAS HAD NO COMPLAINTS OTHER THAN CHRONIC PAIN REQUIRING PRN MEDICATION, WHICH WAS EFFECTIVE FOR HIS PAIN. PT USES CALL LIGHT APPROPRIATELY, CALL LIGHT IN REACH, WILL CONTINUE TO MONITOR AND GIVE REPORT TO ONCOMING SHIFT RN.
--- NOTE | 2021-11-18 18:44 | NUR ---
PT ARRIVED FROM PCU @ THIS TIME 1X W/ FWW. PLAN TO DO BEDSIDE REPORT.
--- NOTE | 2021-11-19 06:07 | NUR ---
PT was PCU transfer & he had uneventful night . on tele monitor SR 93 currently. He has chronic pain hed helpful effect on oral pain meds. Room air voids, tolerating diet & activity. hoping to DC home soon.
[2021-11-19 10:01] LABS: BASOPHILS ABSOLUTE AUTO 0.05 K/mm3 (0.00-0.23); BASOPHILS PERCENT AUTO 0 % (0-2); EOSINOPHILS ABSOLUTE AUTO 0.11 K/mm3 (0.00-0.68); EOSINOPHILS PERCENT AUTO 1 % (0-6); IMMATURE GRAN ABSOLUTE AUTO 0.08 K/mm3 (0.00-0.10); IMMATURE GRAN PERCENT AUTO 1 % (0-1); LYMPHOCYTES ABSOLUTE AUTO 0.97 K/mm3 (0.84-5.20); LYMPHOCYTES PERCENT AUTO 8 % (21-46); MONOCYTES ABSOLUTE AUTO 0.85 K/mm3 (0.16-1.47); MONOCYTES PERCENT AUTO 7 % (4-13); Mean Corpuscular HGB 31.9 pg (26.0-34.0); Mean Corpuscular HGB Conc 32.3 g/dL (31.5-36.5); Mean Corpuscular Volume 99 fL (80-100); Mean Platelet Volume 9.2 fL (9.1-12.4); NEUTROPHILS ABSOLUTE AUTO 10.44 K/mm3 (1.96-9.15); NEUTROPHILS PERCENT AUTO 84 % (41-73); Platelet Count 289 K/mm3 (150-400); RDW Coefficient Variation 16.2 % (11.7-14.2); RDW Standard Deviation 58.5 fL (35.1-46.3); Red Blood Cell Count 3.13 M/mm3 (4.30-5.90)
[2021-11-19 10:45] LABS: Alanine Aminotransfer (ALT/SGP <6 U/L (12-78); Albumin, Blood 1.6 g/dL (3.4-5.0); Albumin/Globulin Ratio 0.4 (0.8-1.8); Alk Phos 127 U/L (50-136); Anion Gap 5 mmol/L (6-16); Aspartate Aminotrans (AST/SGOT 27 U/L (12-37); Bilirubin, Total 0.4 mg/dL (0.1-1.0); Blood Urea Nitrogen 8 mg/dL (8-24); Bun/Creatinine Ratio 7.3 (12.0-20.0); CO2, Blood 28 mmol/L (21-32); Calcium, Blood 7.4 mg/dL (8.5-10.1); Chloride, Blood 107 mmol/L (98-108); Globulin, Blood 4.3 g/dL (2.2-4.0); Glomerular Filtration Rate 75 (60-); Glucose, Blood 124 mg/dL (70-99); Potassium, Blood 4.3 mmol/L (3.5-5.5); Sodium, Blood 140 mmol/L (136-145); Total Protein, Blood 5.9 g/dL (6.4-8.2)
[2021-11-19] MEDS ORDERED: ACET325 PO (17:09)
[2021-11-19] MEDS ORDERED: CEPH500 PO (17:09)
--- NOTE | 2021-11-19 18:20 | NUR ---
DISCHARGE SUMMARY TELE AND IV REMOVED PRIOR TO DISCHARGE. DISCHARGE EDUCATION REVIEWED WITH AND SIGNED BY PT. PT TRANSFERED TO [facility] [employer] VIA WHEELCHAIR ALONG WITH PERSONAL BELONGINGS. MET BY SON AND AT [facility] [employer]. MEDS FAXED TO PHARMACY.
== END 2021-11-19 18:10 | disposition home health service (06) | DRG 208 ==
LOC: ER 17:10 → ICUE 22:00 → ICUW 22:00 → ICUE 22:02 → PCU 11-17 00:25 → MEDS 11-18 18:32
PROVIDERS: Emergency Medicine; Family Medicine; Internal Medicine Critical Care Medicine; Physician Assistant; Student in an Organized Health Care Education/Training Program; ADMIT Internal Medicine
PROC: 3E033XZ Introduction of Vasopressor into Peripheral Vein, Percutaneous Approach (ICD-10-PCS; principal; 2021-11-13)
PROC: 5A1945Z Respiratory Ventilation, 24-96 Consecutive Hours (ICD-10-PCS; 2021-11-13)
PROC: 05HY33Z Insertion of Infusion Device into Upper Vein, Percutaneous Approach (ICD-10-PCS; 2021-11-13)
PROC: 0BH18EZ Insertion of Endotracheal Airway into Trachea, Via Natural or Artificial Opening Endoscopic (ICD-10-PCS; 2021-11-13)
PROC: 0W993ZZ Drainage of Right Pleural Cavity, Percutaneous Approach (ICD-10-PCS; 2021-11-14)
PROC: 0W9B3ZZ Drainage of Left Pleural Cavity, Percutaneous Approach (ICD-10-PCS; 2021-11-15)
DX: J90 Pleural effusion, not elsewhere classified (principal); J15.211 Pneumonia due to Methicillin susceptible Staphylococcus aureus; R65.21 Severe sepsis with septic shock; A41.9 Sepsis, unspecified organism; J96.01 Acute respiratory failure with hypoxia; S22.31XA Fracture of one rib, right side, initial encounter for closed fracture; S32.019A Unspecified fracture of first lumbar vertebra, initial encounter for closed fracture; E87.1 Hypo-osmolality and hyponatremia; N17.9 Acute kidney failure, unspecified; M45.9 Ankylosing spondylitis of unspecified sites in spine; E87.6 Hypokalemia; E83.42 Hypomagnesemia; E83.51 Hypocalcemia; I95.9 Hypotension, unspecified; R00.1 Bradycardia, unspecified; N18.31 Chronic kidney disease, stage 3a; I48.0 Paroxysmal atrial fibrillation; L40.9 Psoriasis, unspecified; E11.22 Type 2 diabetes mellitus with diabetic chronic kidney disease; I12.9 Hypertensive chronic kidney disease with stage 1 through stage 4 chronic kidney disease, or unspecified chronic kidney disease; Z79.01 Long term (current) use of anticoagulants; Z98.890 Other specified postprocedural states; Z87.891 Personal history of nicotine dependence; Z79.899 Other long term (current) drug therapy; W18.30XA Fall on same level, unspecified, initial encounter
CPT/HCPCS: 31500; 32555; 36415; 36556; 36600; 51702; 70450; 71045; 71046; 71250; 72125; 74177; 80047; 80048; 80053; 80069; 81001; 82042; 82330; 82533; 82803; 82945; 82947; 83615; 83735; 83986; 84100; 84132; 84157; 84443; 84478; 84484; 85014; 85025; 85027; 85610; 85730; 86850; 86900; 86901; 87040; 87070; 87077; 87147; 87186; 87205; 87507; 88108; 88305; 89051; 93306; 94002; 94003; 94640; 94760; 94762; 96365; 96366; 96368; 96375; 97110; 97116; 97161; 97530; 99285-25; A9270; C1751; C9113; J0461; J0610; J0690; J0696; J1265; J1815; J2310; J2704; J3010; J3370; J3475; J3480; J7030; J7040; J7050; J7060; J7799; Q9967